=== PATIENT | male | born 1980 | race Caucasian/White ===

== ENCOUNTER → 2022-11-04 13:04 | Outpatient (BNVA) | payer OTHER, SELFPAY | PROVIDERS: PCP Internal Medicine; Visit Provider Orthopaedic Surgery ==

== ENCOUNTER 2023-06-17 11:18 | Outpatient (REF) | payer SELFPAY ==
[2023-06-17 14:13] LABS: MANUAL DIFF FLAG NO
[2023-06-17 14:57] LABS: Basophils Absolute Auto 0.1 X10*3/uL (0.0-0.2); Basophils Percent Auto 0.7 % (0-2); Eosinophils Absolute Auto 0.3 X10*3/uL (0.0-0.4); Eosinophils Percent Auto 4.6 % (0-4); Hematocrit 42.3 % (42.0-52.0); Hemoglobin 13.7 g/dl (14.0-18.0); Imm Gran Abs Auto 0.03 X10*3/uL (0.00-0.03); Imm Gran Pct Auto 0.4 % (0.0-0.4); Lymphocytes Absolute Auto 2.2 X10*3/uL (1.2-4.9); Lymphocytes Percent Auto 30.8 % (20-40); Mean Corpuscular HGB Conc 32.4 g/dl (31.0-36.0); Mean Corpuscular Hemoglobin 28.5 pg (27.0-33.0); Mean Corpuscular Volume 87.9 fL (80.0-98.0); Mean Platelet Volume 10.5 fL (9.4-12.4); Monocytes Absolute Auto 0.4 X10*3/uL (0.1-1.2); Monocytes Percent Auto 5.6 % (2-11); Neutrophils Percent Auto 57.9 % (45-73); Platelet Count 200 X10*3/uL (160-400); Red Blood Count 4.81 X10*6/uL (4.60-5.80); Red Cell Distribution Width 13.6 % (11.0-16.0)
[2023-06-17 15:09] LABS: Alanine Aminotransferase 34 U/L (0-40); Albumin Level 4.4 g/dL (3.5-5.0); Alkaline Phosphatase 68 U/L (39-117); Anion Gap 9 (12-20); Aspartate Amino Transferase 20 U/L (5-37); Bilirubin Total 0.8 mg/dL (0.0-1.0); Blood Urea Nitrogen 15 mg/dL (9-16); Calcium 9.6 mg/dL (8.4-10.2); Carbon Dioxide 28 mmol/L (22-29); Chloride 107 mmol/L (96-108); Estimated Glomerular Filt Rate > 60; Glucose Random 100 mg/dL (60-115); Potassium 4.2 mmol/L (3.3-5.1); Sodium 140 mmol/L (135-145); Total Protein 7.6 g/dL (6.5-8.0)
== END 2023-06-17 11:19 | disposition home or self-care (01) ==
LOC: HO.CHCLDS 11:18
PROVIDERS: Visit Provider Internal Medicine
DX: E11.621 Type 2 diabetes mellitus with foot ulcer (principal); L97.509 Non-pressure chronic ulcer of other part of unspecified foot with unspecified severity
CPT/HCPCS: 36415; 80053; 85025

== ENCOUNTER 2023-07-01 10:01 | Outpatient (REF) | payer MEDICAID, SELFPAY ==
--- NOTE | 2023-07-01 10:04 | EMG_ITS ---
Bilateral median and ulnar motor and sensory studies were performed. Bilateral radial and sensory studies were performed and paraspinal muscles were tested with a needle. IMPRESSION: 1. [id number] bilateral median neuropathy across carpal tunnel. 2. 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 MD LUIS E Mae/SHEYLA / [phone]
== END 2023-07-01 10:02 | disposition home or self-care (01) ==
LOC: HO.NEURO 10:01
PROVIDERS: PCP Internal Medicine; Visit Provider Internal Medicine
DX: G56.03 Carpal tunnel syndrome, bilateral upper limbs (principal)
CPT/HCPCS: 95886; 95911

== ENCOUNTER 2023-12-06 10:14 | Outpatient (REF) | payer MEDICAID, SELFPAY ==
[2023-12-06 14:58] LABS: Anion Gap 13 (12-20); Blood Urea Nitrogen 15 mg/dL (9-16); Calcium 9.7 mg/dL (8.4-10.2); Carbon Dioxide 26 mmol/L (22-29); Chloride 105 mmol/L (96-108); Cholesterol 155 mg/dL (<200); Estimated Glomerular Filt Rate > 60; Glucose Random 102 mg/dL (60-115); HDL Cholesterol 36 mg/dL (>40); LDL Cholesterol Calculated 99 mg/dL (<100); Potassium 4.2 mmol/L (3.3-5.1); Sodium 140 mmol/L (135-145); Triglycerides 103 mg/dL (<150)
== END 2023-12-06 10:15 | disposition home or self-care (01) ==
LOC: HO.CHCLDS 10:14
PROVIDERS: Visit Provider Internal Medicine
DX: E11.621 Type 2 diabetes mellitus with foot ulcer (principal); I10 Essential (primary) hypertension; L97.509 Non-pressure chronic ulcer of other part of unspecified foot with unspecified severity
CPT/HCPCS: 36415; 80048; 80061

== ENCOUNTER 2023-12-06 14:17 | Outpatient (REF) | payer MEDICAID, SELFPAY ==
[2023-12-06 14:53] LABS: Creatinine Urine 110.96 mg/dL; Microalbum/Creatinine Ratio Ur 8.1 ug/mg cr (<30)
== END 2023-12-06 14:18 | disposition home or self-care (01) ==
LOC: HO.LNP 14:17
PROVIDERS: Visit Provider Internal Medicine
DX: E11.621 Type 2 diabetes mellitus with foot ulcer (principal); L97.509 Non-pressure chronic ulcer of other part of unspecified foot with unspecified severity
CPT/HCPCS: 36415; 80048; 80061; 82043; 82570

== ENCOUNTER 2025-04-12 10:28 | Outpatient (REF) | payer OTHER, SELFPAY ==
--- NOTE | ~2025-04-12 | XR_ITS ---
EXAMINATION: XR FOOT, RIGHT CLINICAL INFORMATION: Right foot ulcer COMPARISON: None available. TECHNIQUE: AP, lateral, and oblique views of the right foot. FINDINGS: There is valgus deformity of the second digit. There is a chronic fracture through the proximal metaphysis of the fourth proximal phalanx with medial displacement. There is mild to moderate degenerative changes in the MTP and IP joints of the foot with varying degrees of joint space narrowing and marginal osteophytes. There is moderate degenerative change in the intermetatarsal, tarsometatarsal, and midfoot tarsal joints with sclerosis and osteophytes and degenerative cystic change. There are small calcaneal osteophytes. No periosteal new bone formation or bony destructive changes are identified. XR/XR foot RT min 3V IMPRESSION: Moderate degenerative changes in the midfoot and forefoot with valgus deformity of the second digit. Chronic fracture through the base of the fourth proximal phalanx with deformity. No definitive evidence of osteomyelitis. Consider MRI without and with IV contrast if there is high suspicion. Electronically signed by: Hiro Zhang MD 04/12/2025 10:51 AM [facility]
== END 2025-04-12 10:29 | disposition home or self-care (01) ==
LOC: HO.XRAY 10:28
PROVIDERS: PCP Internal Medicine; Visit Provider Internal Medicine
DX: L89.891 Pressure ulcer of other site, stage 1 (principal)
CPT/HCPCS: 73630

== ENCOUNTER → 2025-04-12 10:33 | Outpatient (BNV) | payer OTHER, SELFPAY | PROVIDERS: PCP Internal Medicine; Visit Provider Radiology Diagnostic Radiology | DX: M19.071 Primary osteoarthritis, right ankle and foot (principal); M20.5X1 Other deformities of toe(s) (acquired), right foot; S92.411D Displaced fracture of proximal phalanx of right great toe, subsequent encounter for fracture with routine healing | CPT/HCPCS: 73630 ==

== ENCOUNTER 2025-05-10 22:28 | Emergency (ER) | payer OTHER, SELFPAY ==
--- NOTE | ~2025-05-10 | XR_ITS ---
CLINICAL HISTORY: osteo?? 3 view right foot Comparison: CR/SR - XR FOOT 3 OR MORE VIEWS RIGHT - 04/12/25 10:39 EST Findings: Severe degenerative changes of the interphalangeal joints, metatarsophalangeal joints, and the midfoot. Remote fracture deformities of the 2nd and 4th proximal phalanx. No convincing cortical erosion. IMPRESSION: 1. No convincing radiographic evidence of osteomyelitis. If there is continued clinical concern, MRI is more sensitive. 2. Chronic findings as above. This document has been electronically signed by: Kori Bullard MD on 05/11/2025 01:11:05
[2025-05-10 22:47] VITALS: BP 144/94; PULSE 101; RESP 18; TEMP 37.3; O2SAT 98; BMI 33.4
[2025-05-10 23:23] LABS: MANUAL DIFF FLAG NO
[2025-05-10 23:27] LABS: Hematocrit 37.7 % (42.0-52.0); Hemoglobin 12.8 g/dl (14.0-18.0); Imm Gran Abs Auto 0.03 X10*3/uL (0.00-0.03); Imm Gran Pct Auto 0.3 % (0.0-0.4); Lymphocytes Absolute Auto 1.9 X10*3/uL (1.2-4.9); Mean Corpuscular HGB Conc 34.0 g/dl (31.0-36.0); Mean Corpuscular Hemoglobin 30.0 pg (27.0-33.0); Mean Corpuscular Volume 88.5 fL (80.0-98.0); NRBC Abs Auto 0.000 X10*3/uL (0.0-0.012); NRBC Pct Auto 0.0 /100WBC (0.0-0.2); Platelet Count 201 X10*3/uL (160-400); Red Blood Count 4.26 X10*6/uL (4.60-5.80); White Blood Count 9.5 X10*3/uL (4.8-10.8)
[2025-05-10 23:41] LABS: Alanine Aminotransferase 30 U/L (0-40); Albumin Level 4.4 g/dL (3.5-5.0); Alkaline Phosphatase 70 U/L (39-117); Anion Gap 13 (12-20); Aspartate Amino Transferase 19 U/L (5-37); Blood Urea Nitrogen 19 mg/dL (9-16); Calcium 8.9 mg/dL (8.4-10.2); Carbon Dioxide 28 mmol/L (22-29); Chloride 103 mmol/L (96-108); Creatinine Clr Calc Pharmacy 103.6; Estimated Glomerular Filt Rate 56; Potassium 4.0 mmol/L (3.3-5.1); Sodium 140 mmol/L (135-145); Total Protein 7.2 g/dL (6.5-8.0)
--- NOTE | 2025-05-11 00:25 | ED.GENADULT ---
HPI - General Adult General Chief complaint: Skin/Abscess/Foreign Body Stated complaint: Wound Time Seen by Provider: 05/11/25 00:20 Source: patient Limitations: no limitations History of Present Illness ED Provider: Marian Alonzo PA-C HPI narrative: 44-year-old male with history of diabetes we will subsequent neuropathy, with a known right plantar diabetic foot ulcer followed by wound care, now status post recent debridement, presents with a concern for active infection. Patient states over the past day and a half, he has developed new redness over the top of the foot that extends to the paz, that has painful, he is concerned for cellulitis. He is noting drainage from the ulcer site, however there was no foul smell, it is not pus. The patient denies fever. Related Data Previous Rx's ?Medication ?Instructions ?Recorded doxycycline hyclate 100 mg capsule 100 mg PO BID #19 caps 05/11/25 Allergies Allergy/AdvReac Type Severity Reaction Status Date / Time No Known Allergies Allergy Verified 05/10/25 22:49 Review of Systems Review of Systems: Yes all other systems are reviewed and are negative Constitutional: Constitutional: Denies fatigue and Denies fever(s) Cardiovascular: Cardiovascular: Denies chest pain and Denies dyspnea Respiratory: Respiratory: Denies dyspnea Gastrointestinal: Gastrointestinal: Denies abdominal pain Musculoskeletal: Musculoskeletal: Denies arthralgias and Denies joint swelling Integumentary/Breasts: Skin/Breast: Reports erythema, Denies skin swelling and Reports skin ulcer Endocrine: Endocrine: Denies fatigue PMFSH Past Medical History Attestation statement: The following information was validated with the patient. Medical History (Updated 05/11/25 @ 01:49 by NEGRA Castellano) Hx of diabetes mellitus Social History Social History (Updated 11/04/22 @ 13:34 by Brody Shannon) Alcohol intake: never Patient Tobacco Use Status: Never used Tobacco Advance Directives: No Advance Directives Information Provided: No Do you have a plan to hurt others: No Plan Current occupational status: employed Physical Exam ED Vital Signs: Vital Signs - 24 hr 05/10/25 22:47 05/11/25 01:58 05/11/25 02:08 Temperature 99.2 F 98.8 F 98.8 F Pulse Rate 101 H 92 92 Respiratory Rate 18 18 18 Blood Pressure 144/94 H 117/74 117/74 Pulse Oximetry 98 97 97 Oxygen Delivery Method Room Air Room Air Room Air BMI result Body Mass Index 33.4 Const Other: Alert well-appearing Orientation/consciousness: patient oriented x3 Resp Effort & Inspection: normal respiratory effort Cardio Other: Normal peripheral perfusion Skin Other: Warm dry no rash Neuro General: patient oriented x3, gait normal, no focal motor deficits and CN's II-XI intact bilaterally Extrem Other: Psych Other: Cooperative Medications Administered Discontinued Medications Generic Name Dose Route Start Last Admin Trade Name Phoebe PRN Reason Stop Dose Admin Doxycycline Monohydrate 100 mg 05/11/25 01:41 05/11/25 01:57 Doxycycline Monohydrate 100 Mg Capsule PO 05/11/25 01:42 100 mg ONCE ONE Administration Medical Decision Making Medical Decision Making [facility] Narrative: 44-year-old male with history of diabetes we will subsequent neuropathy, with a known right plantar diabetic foot ulcer followed by wound care, now status post recent debridement, presents with a concern for active infection. Patient states over the past day and a half, he has developed new redness over the top of the foot that extends to the paz, that has painful, he is concerned for cellulitis. He is noting drainage from the ulcer site, however there was no foul smell, it is not pus. The patient denies fever. Problem: Diabetes, known diabetic foot ulcer History: Per patient I have considered the following differential diagnoses: Active infection, cellulitis, purulent cellulitis, osteomyelitis, gangrene Plan: Screening labs obtained, adding on inflammatory markers and an x-ray. The patient is afebrile with stable vitals. Thus far he has no leukocytosis, the fluid noted on exam was serosanguineous. I have low suspicion for osteomyelitis. It does appear that he is developing cellulitis of right lower extremity. He may not require admission. I have independently reviewed the following tests: Labs: No leukocytosis, not anemic, no left shift, ESR 31, no electrolyte abnormality, CRP 3.97 X-ray right foot:Findings: Severe degenerative changes of the interphalangeal joints, metatarsophalangeal joints, and the midfoot. Remote fracture deformities of the 2nd and 4th proximal phalanx. No convincing cortical erosion. IMPRESSION: 1. No convincing radiographic evidence of osteomyelitis. If there is continued clinical concern, MRI is more sensitive. 2. Chronic findings as above. Differential Diagnosis Differential Diagnoses: The differential diagnosis associated with the presentation includes See [facility] Admission/Observation Consideration of admission/observation: Escalation of care including admission/observation considered Not applicable Lab Data [facility] Lab Attestation statement: I reviewed the patient's lab results. 05/10/25 23:17 05/10/25 23:17 Labs: Lab Results 05/10/25 Range/Units 23:17 WBC 9.5 (4.8-10.8) X10*3/uL RBC 4.26 L (4.60-5.80) X10*6/uL Hgb 12.8 L (14.0-18.0) g/dl Hct 37.7 L (42.0-52.0) % MCV 88.5 (80.0-98.0) fL MCH 30.0 (27.0-33.0) pg MCHC 34.0 (31.0-36.0) g/dl RDW 13.0 (11.0-16.0) % Plt Count 201 (160-400) X10*3/uL MPV 10.0 (9.4-12.4) fL Immature Gran % (Auto) 0.3 (0.0-0.4) % Neut % (Auto) 70.3 (45-73) % Lymph % (Auto) 20.1 (20-40) % [place] % (Auto) 6.6 (2-11) % Eos % (Auto) 2.3 (0-4) % Baso % (Auto) 0.4 (0-2) % Lymph # (Auto) 1.9 (1.2-4.9) X10*3/uL [place] # (Auto) 0.6 (0.1-1.2) X10*3/uL Eos # (Auto) 0.2 (0.0-0.4) X10*3/uL Baso # (Auto) 0.0 (0.0-0.2) X10*3/uL Abs Immat Gran (auto) 0.03 (0.00-0.03) X10*3/uL Absolute Neuts (auto) 6.7 (2.0-8.3) x10*3/uL Absolute Nucleated RBC 0.000 (0.0-0.012) X10*3/uL Nucleated RBC % (auto) 0.0 (0.0-0.2) /100WBC ESR 31 H (0-15) MM/HR Sodium 140 (135-145) mmol/L Potassium 4.0 (3.3-5.1) mmol/L Chloride 103 (96-108) mmol/L Carbon Dioxide 28 (22-29) mmol/L Anion Gap 13 (12-20) BUN 19 H (9-16) mg/dL Creatinine 1.38 (0.5-1.4) mg/dL Estim Creat Clear Calc 103.6 Estimated GFR 56 Random Glucose 152 H (60-115) mg/dL Calcium 8.9 D (8.4-10.2) mg/dL Total Bilirubin 0.8 (0.0-1.0) mg/dL AST 19 (5-37) U/L ALT 30 (0-40) U/L Alkaline Phosphatase 70 (39-117) U/L C-Reactive Protein 3.97 H (< or = 0.50) mg/dL Total Protein 7.2 (6.5-8.0) g/dL Albumin 4.4 (3.5-5.0) g/dL Radiology Impression Discussion of test interpretation with radiology: I have reviewed the radiologist's reading. Discharge Plan Discharge Clinical Impression: Cellulitis Qualifiers: Site of cellulitis: extremity Site of cellulitis of extremity: lower extremity Laterality: right Qualified Code(s): L03.115 - Cellulitis of right lower limb Patient Disposition: Home, Self-Care Instructions: Cellulitis (ED) Additional Instructions: You are being treated for cellulitis. You had no lab abnormalities, the x-ray of the foot did not reveal osteomyelitis. Take the doxycycline as directed. Watch for signs of progression of infection which would include worsening redness, swelling, warmth at the site of the ulceration, pus draining from the site, worsening redness tracking up the right lower extremity into the groin or fever. If you develop any of these symptoms, seek medical attention. Prescriptions: New doxycycline hyclate 100 mg capsule 100 mg PO BID Qty: 19 0RF Interventions: ED Discharge Assessment Last Done: 05/11/25 02:08 Discharge Date/Time: 05/11/25 02:08 Print Language: [place]
--- OUTSIDE RECORDS SUMMARY | 2025-05-11 00:40 | XMS_ITS | Encounter Summary ---
Author Organization [employer] Address [address] [place] [address] 7 [place] [address] Care Team Providers Care Lens Grinder Name Role Phone Korey Kelly MD Primary Care Prov ider Reason for Visit * Reason Comments Med Refill Encounter Details Date Type Department Care Team ([facility] st Contact Info) Description 11/11/2024 Refill [facility] CH[facility] MED & PEDS [address] [place], [place] [phone] Korey Kelly MD [address] [place] [address] Social History Tobacco Use Types Packs/Day Years Used Date Smoking Tobacco: Never Smokeless Tobacco: Never Alcohol Use Standard Drinks/Week Comments Never 0 (1 standard drink = 0.6 oz pur e alcohol) Depression Answer Date Recorded Patient Health Questionnaire-9 Score 0 05/12/2024 Patient Health Questionnaire-9 Score 0 05/12/2024 Last PHQ-9: Questionnaire Data Not on file 1 07/13/2023 Housing Stability Answer Date Recorded What is your housing situation today? I have john lovell 11/29/[address] you li ve. Do you have problems with any of the following? None of the above 11/29/2023 Food Insecurity Answer Date Recorded Within the past 12 months, y ou worried that your food would run out before you got money to buy more: Never True 11/29/2023 Within the past 12 months,th e food you bought just didn't last and you didn't have enough money to get more: Never True Transportation Answer Date Recorded In the past 12 months, has l ack of transportation kept you from medical appts, meetings, work or from getting things needed for daily living? No 11/29/2023 Utilities Answer Date Recorded In the past 12 months, has t he electric, gas, oil or water company threatened to shut off services in your home? No 11/29/2023 Depression Answer Date Recorded Patient Health Questionnaire-2 Score 0 05/12/2024 Internet Access Answer Date Recorded Internet Access Q1 Yes 02/07/2024 Internet Access Q2 Not on file 02/07/2024 Sex and Gender Information Value Date Recorded Sex Assigned at Male 04/06/2022 10:36 AM EDT Legal Sex Male 10:36 AM EDT Gender Identity Male 04/06/2022 10:36 AM EDT Sexual Orientation Straight 04/06/2022 10 :36 AM EDT documented as of this encounter Plan of Treatment Not on file documented as of this encounter Visit Diagnoses Not on filedocumented in this encounter Additional Health Concerns Assessment Noted Time PHQ-9 Depression Total Score: 0 05/12/20 24 9:37 AM EST documented as of this encounter Care Teams Lens Grinder Relationship Specialty Start Date End Date Korey Kelly MD [address] [place] [id number] PCP - General Internal Medicine 03/09/19 documented as of this encounter
--- OUTSIDE RECORDS SUMMARY | 2025-05-11 00:40 | XMS_ITS | Encounter Summary ---
Author Organization [facility] Address [address] [place] [address] Phone Care Team Providers Care Bottle Assembler Name Role Phone Unknown, Unknown Primary Care Provider Korey Leal MD Primary Care Prov ider Encounter Details Date Type Department Care Team (Late st Contact Info) Description 02/14/2019 Procedure Pass [facility], [address] [address] Social History Tobacco Use Types Packs/Day Years Used Date Smoking Tobacco: Never Smokeless Tobacco: Never Alcohol Use Standard Drinks/Week Comments Not Currently 0 (1 standard drink = 0.6 oz pur e alcohol) Sex and Gender Information Value Date Recorded Sex Assigned at Not on file Legal Sex Male 3:42 PM EDT Gender Identity Not on file Sexual Orientation Not on file documented as of this encounter Plan of Treatment Not on file documented as of this encounter Visit Diagnoses Not on filedocumented in this encounter Care Teams Bottle Assembler Relationship Specialty Start Date End Date Unknown, Unknown, MD PCP - General 02/12/19 03/08/19 Korey Kelly MD [address] [place] [address] PCP - General 03/09/19 documented as of this encounter Additional Source Comments The information contained in this document represents components of the legal health record. It is not the complete legal health record.[facility]
--- OUTSIDE RECORDS SUMMARY | 2025-05-11 00:40 | XMS_ITS | Encounter Summary ---
Author Organization [employer] Address [address] [place] [address] 7 [place] [address] Care Team Providers Care Senior Web Services Developer Name Role Phone Korey Kelly MD Primary Care Prov ider Reason for Visit * Reason Comments Med Refill Encounter Details Date Type Department Care Team ([facility] st Contact Info) Description 01/04/2025 Refill [facility] CHC MED & PEDS [address] [place], [place] [phone] Korey Kelly MD [address] [place] [address] Social History Tobacco Use Types Packs/Day Years [...] documented as of this encounter Care Teams Senior Web Services Developer Relationship Specialty Start Date End Date Korey Kelly MD [address] [place] [address] PCP - General Internal Medicine 03/09/19 documented as of this encounter
--- OUTSIDE RECORDS SUMMARY | 2025-05-11 00:40 | XMS_ITS | Encounter Summary ---
Author Organization [facility] Address [address] [place] [phone] Phone Care Team Providers Care Lozenge Dough Mixer Name Role Phone Unknown, Unknown Primary Care Provider Korey Leal MD Primary Care Prov ider Encounter Details Date Type Department Care Team (Late st Contact Info) Description 02/28/2019 Ancillary Orders Virtual Department [address] [place] [address] Purnima Garcia MD [address] [place] [address] Type 2 diabetes mellitus without complication, unspecified whether longwall headgate operator insulin use Social History Tobacco Use Types Packs/Day Years [...] documented as of this encounter Visit Diagnoses Diagnosis Type 2 diabetes mellitus without complication, unspecified whether long-term insulin use documented in this encounter Care Teams Lozenge Dough Mixer Relationship Specialty Start Date End Date Unknown, Unknown, PCP - General 02/12/19 03/08/19 Korey Kelly MD [address] [place] [address] PCP - General 03/09/19 documented as of this encounter Additional Source Comments The information contained in this document represents components of the legal health record. It is not the complete legal health record.[facility]
--- OUTSIDE RECORDS SUMMARY | 2025-05-11 00:40 | XMS_ITS | Encounter Summary ---
Author Organization [facility] Address [address] [place] [address] Phone Care Team Providers Care Hay Stacker Name Role Phone Korey Kelly MD Primary Care Prov ider Encounter Details Date Type Department Care Team (Latest Contact Info) Description 03/20/2019 Transcribe Orders [address] [place] [address] Asad Angel MD [address] 2nd [place] [address] [email or web address] Diabetic foot ulcer associated with other specified diabetes mellitus, unspecified laterality, unspecified part of foot, unspecified ulcer stage (Primary Dx) Social History Tobacco Use Types Packs/Day Years Used Date Smoking Tobacco: Never Smokeless Tobacco: Never Alcohol Use Standard Drinks/Week Comments Yes 0 (1 standard drink = 0.6 oz pur e alcohol) very rare Sex and Gender Information Value Date Recorded Sex Assigned at Not on file Legal Sex Male 3:42 PM EDT Gender Identity Not on file Sexual Orientation Not on file documented as of this encounter Plan of Treatment Not on file documented as of this encounter Results * (ABNORMAL) Sedimentation rate (ESR) (03/20/2019 2:00 PM EDT) ESR 30(H) 0 - 15 mm/h [facility] Blood 03/20/2019 2:00 PM EDT 03/20/2019 3:29 PM EDT us Asad Angel MD LAB BLOOD BKR ORDERABLE S Final Result Performing Organization Address City/[facility]/ZIP Co de Phone Number [address] [address] * (ABNORMAL) C-Reactive Protein (03/20/2019 2:00 PM EDT) C REACTIVE PROTEIN 6.3(H) 0.0 - 4.0 mg/L [facility] Blood 03/20/2019 2:00 PM EDT 03/20/2019 3:29 PM EDT us Asad Angel MD LAB BLOOD BKR ORDERABLE S Final Result Performing Organization Address [facility] Co de Phone Number [address] [address] * (ABNORMAL) CBC and differential (03/20/2019 2:00 PM EDT) WBC 6.10 3.40 - 11.20 K/uL [facility] RBC 4.36(L) 4.50 - 5.50 M/uL [facility] HGB 12.5(L) 13.0 - 17.0 g/dL [facility] HCT 37.7(L) 40.0 - 51.0 % [facility] PLT 234 130 - 400 K/uL [facility] MCV 86.5 79.0 - 98.0 [facility] MCH 28.7 27.0 - 34.8 pg [facility] MCHC 33.2 31.5 - 36.0 g/dL [facility] RDW 13.8 10.8 - 14.6 % [facility] MPV 10.6 9.4 - 12.4 [facility] NRBC 0.00 0.00 /100 WBCs [facility] ABSOLUTE NRBC 0.00 0.00 K/uL [facility] DIFF METHOD Auto [facility] NEUTS 61.9 45.30 - 77.70 % [facility] LYMPHS 25.6 12.30 - 39.70 % [facility] MONOS 6.9 4.10 - 12.80 % [facility] EOS 4.3 0 - 7.2 % [facility] BASOS 0.8 0 - 2.80 % [facility] Granulocytes, immature (%) 0.5 0.0 - 0.9 % [facility] ABSOLUTE NEUTS 3.78 1.40 - 7.70 K/uL [facility] ABSOLUTE LYMPHS 1.56 0.60 - 3.20 K/uL [facility] ABSOLUTE MONOS 0.42 0.11 - 0.59 K/uL [facility] ABSOLUTE EOS 0.26 0.01 - 0.50 K/uL [facility] ABSOLUTE BASOS 0.05 0.00 - 0.08 K/uL [facility] Granulocytes, immature 0.03 0.00 - 0.05 K/uL [facility] Blood 03/20/2019 2:00 PM EDT 03/20/2019 3:29 PM EDT us Asad Angel MD LAB BLOOD BKR ORDERABLE S Final Result [facility] [address] [place], [place] [phone] * (ABNORMAL) Comprehensive metabolic panel (03/20/2019 2:00 PM EDT) SODIUM 140 133 - 146 mmol/L [facility] POTASSIUM 4.2 3.3 - 5.1 mmol/L [facility] CHLORIDE 103 96 - 108 mmol/L [facility] CO2 25 21 - 35 mmol/L [facility] BUN 19 6 - 19 mg/dL [facility] CREATININE 0.80 0.5 - 1.5 mg/dL [facility] GLUCOSE 111(H) 70 - 99 mg/dL [facility] ALBUMIN 4.3 3.9 - 4.8 g/dL [facility] TOTAL PROTEIN 7.2 6.5 - 8.0 g/dL [facility] CALCIUM 9.7 8.4 - 10.3 mg/dL [facility] ALKALINE PHOSPHATASE 66 39 - 117 U/L [facility] TOTAL BILIRUBIN 0.5 0.0 - 1.2 mg/dL [facility] AST 16 0 - 37 U/L [facility] ALT 26 0 - 40 U/L [facility] GLOBULIN 2.9 1 - 4.8 g/dL [facility] EGFR 113 >59 mL/min/1.7 3m2 [facility] Comment:If patient is black, multiply result by 1.159. Estimated glomerular filtration rate calculated using the CKD-EPI equation. ANION GAP 16 10 - 20 mmol/L [facility] Blood 03/20/2019 2:00 PM EDT 03/20/2019 3:29 PM EDT us Asad Angel MD LAB BLOOD BKR ORDERABLE S Final Result [facility] [address] [place] [address] documented in this encounter Visit Diagnoses Diagnosis Diabetic foot ulcer associated with other specified diabetes mellitus, unspecified laterality, unspecified part of foot, unspecified ulcer stage- Primary documented in this encounter Care Teams Hay Stacker Relationship Specialty Start Date End Date Korey Kelly MD [address] [place] [address] PCP - General 03/09/19 documented as of this encounter Additional Source Comments The information contained in this document represents components of the legal health record. It is not the complete legal health record.[facility]
--- OUTSIDE RECORDS SUMMARY | 2025-05-11 00:40 | XMS_ITS | Encounter Summary ---
Author Organization [employer] Address [address] [facility] [address] [place] [address] Care Team Providers Care Headliner Installer Name Role Phone Korey Kelly MD Primary Care Prov ider Encounter Details Date Type Department Care Team ([facility] st Contact Info) Description 05/18/2022 Orders Only [facility] MEDICINE [address] [place], [place] [phone] Korey Kelly MD [address] [place] [address] Social History Tobacco Use Types Packs/Day Years Used Date Smoking Tobacco: Never Assessed Sex and Gender Information Value Date Recorded Sex Assigned at Male 04/06/2022 10:36 AM EDT Legal Sex Male 10:36 AM EDT Gender Identity Male 04/06/2022 10:36 AM EDT Sexual Orientation Straight 04/06/2022 10 :36 AM EDT COVID-19 Exposure Response Date Recorded In the last 10 days, have yo u been in contact with someone who was confirmed or suspected to have Coronavirus/COVID-19? No / Unsure 05/18/2022 9:56 AM EST documented as of this encounter Plan of Treatment Not on file documented as of this encounter Visit Diagnoses Not on filedocumented in this encounter Care Teams Headliner Installer Relationship Specialty Start Date End Date Korey Kelly MD [address] [place] [address] PCP - General Internal Medicine 03/09/19 documented as of this encounter
--- OUTSIDE RECORDS SUMMARY | 2025-05-11 00:40 | XMS_ITS | Encounter Summary ---
Author Organization [facility] Address [address] [place] [address] Phone Care Team Providers Care Pediatric Associate Name Role Phone Korey Kelly MD Primary Care Prov ider Encounter Details Date Type Department Care Team (Late st Contact Info) Description 03/09/2019 Ancillary Orders Virtual Department [address] [place] [address] Purnima Garcia MD [address] [place] [address] Type 2 diabetes mellitus without complication, unspecified whether manager long term care insulin use Social History Tobacco Use Types [...] documented as of this encounter Results * US Ankle/Brachial Indices (03/09/2019 2:57 PM EDT) Anatomical Region Laterality Modality Ankle Left, Ankle Right Ultrasou nd 03/09/2019 3:51 PM EDT Addenda Addendum by Ihsan Gutiérrez MD on 03/10/2019 2:11 PM EDT Please disregard the report below, the following report supersedes the one previously dictated. Clinical history: Foot ulcer, type 2 diabetes mellitus. Findings: The study is limited due to a PICC in the upper extremity and bandage material around the affected foot at the ulcer site. The following pressures were obtained in millimeters of mercury: Left brachial 134, left posterior tibial artery 167 Right PT 161, right DP 143. Arterial indices are 1.2 and 1.07 on the right for the PT and DP respectively. The ANNA on the left is 1.25 for of the posterior tibial artery. Impression: Study limited as described with no evidence of significant arterial insufficiency on either side. Impressions 03/10/2019 11:26 AM EDT Impression: Findings consistent with severe arterial insufficiency bilaterally, left greater than right, commencing in the common femoral artery suggesting significant inflow disease and involving the entire arterial system bilaterally. Narrative 03/10/2019 11:26 AM EDT HISTORY: Foot ulcer. Bilateral ABIs and Doppler waveforms were obtained. Blood pressures (in mm Hg) and arterial indices are as follows: Right-side: Brachial 0, PT 161/1.20, DP 143/1.07 Left side: Brachial 134, PT 167/1.25. There is evidence of atherosclerotic plaque throughout the arterial system bilaterally. The following flow velocities were obtained in centimeters per second: Right side: MULTIGRAPH OPERATOR 101, proximal SFA 122, mid SFA 98, distal SFA 157 proximal popliteal artery 41, mid popliteal artery 34 and distal popliteal artery 46. Anterior tibial artery 15 proximal and 50 in its midportion, it could not be sampled distally. Peroneal artery 30 proximally, 37 in its midportion, no sampling could be performed distally and posterior tibial artery 26, 23 and 23 from proximal to distal respectively. On the left side, the following velocities were obtained: MULTIGRAPH OPERATOR 132, proximal mid and distal SFA 66, 57 and 29,respectively, proximal mid and distal popliteal artery 28, 30 and 36, anterior tibial artery in its proximal and midportion 28, it could not be sampled distally, peroneal artery 38, 21 and 64 and posterior tibial artery 15, 22 and 25. Grayscale imaging supplemented by Doppler waveforms demonstrate decreased flow throughout the entire right lower extremity arterial system commencing in the common femoral artery which has monophasic waveforms suggesting significant iliac inflow disease. Waveforms remain bi- and monophasic throughout the femoral-popliteal system and become monophasic in the below the knee outflow vessels with substantial amplitude loss. On the left side, there is likewise abnormality of the waveforms with diffuse partially severe atherosclerotic plaque formation and biphasic and monophasic waveforms are noted throughout the femoral-popliteal system, essentially monophasic commencing at the level of the mid SFA and continuing into the below the knee outflow arteries. Compared to the contralateral side, the left lower extremity is more severely affected. Procedure Note Ihsan Gutiérrez MD - 03/10/2019 HISTORY: Foot ulcer. Bilateral ABIs and Doppler waveforms were obtained. Blood pressures (in mm Hg) and arterial indices are as follows: Right-side: Brachial 0, PT 161/1.20, DP 143/1.07 Left side: Brachial 134, PT 167/1.25. There is evidence of atherosclerotic plaque throughout the arterial systembilaterally. The following flow velocities were obtained in centimetersper second: Right side: MULTIGRAPH OPERATOR 101, proximal SFA 122, mid SFA 98, distal SFA 157 proximalpopliteal artery 41, mid popliteal artery 34 and distal popliteal [id number]. Anterior tibial artery 15 proximal and 50 in its midportion, it couldnot be sampled distally. Peroneal artery 30 proximally, 37 in itsmidportion, no sampling could be performed distally and posterior tibialartery 26, 23 and 23 from proximal to distal respectively. On the left side, the following velocities were obtained: MULTIGRAPH OPERATOR 132,proximal mid and distal SFA 66, 57 and 29,respectively, proximal mid anddistal popliteal artery 28, 30 and 36, anterior tibial artery in itsproximal and midportion 28, it could not be sampled distally, peronealartery 38, 21 and 64 and posterior tibial artery 15, 22 and 25. Grayscale imaging supplemented by Doppler waveforms demonstrate decreasedflow throughout the entire right lower extremity arterial systemcommencing in the common femoral artery which has monophasic waveformssuggesting significant iliac inflow disease. Waveforms remain bi- andmonophasic throughout the femoral-popliteal system and become monophasicin the below the knee outflow vessels with substantial amplitude loss. On the left side, there is likewise abnormality of the waveforms withdiffuse partially severe atherosclerotic plaque formation and biphasic andmonophasic waveforms are noted throughout the femoral-popliteal system,essentially monophasic commencing at the level of the mid SFA andcontinuing into the below the knee outflow arteries. Compared to thecontralateral side, the left lower extremity is more severely affected. IMPRESSION: Impression: Findings consistent with severe arterial insufficiencybilaterally, left greater than right, commencing in the common femoralartery suggesting significant inflow disease and involving the entirearterial system bilaterally. Purnima Garcia MD [facility] VASCULAR Edited Result - Final documented in this encounter Visit Diagnoses Diagnosis Type 2 diabetes mellitus without complication, unspecified whether [facility] insulin use Type 2 diabetes mellitus without complication, unspecified whether [facility] insulin use documented in this encounter Care Teams Pediatric Associate Relationship Specialty Start Date End Date Korey Kelly MD [address] [place] [address] PCP - General 03/09/19 documented as of this encounter Additional Source Comments The information contained in this document represents components of the legal health record. It is not the complete legal health record.[facility]
--- OUTSIDE RECORDS SUMMARY | 2025-05-11 00:40 | XMS_ITS | Encounter Summary ---
Author Organization [facility] Address [address] [place] [address] Phone Care Team Providers Care Piece Work Checker Name Role Phone Unknown, Unknown Primary Care Provider Korey Leal MD Primary Care Prov ider Encounter Details Date Type Department Care Team (Latest Contact Info) Description 03/06/2019 Transcribe Orders [address] [place] [address] Asad Angel MD [address], 2nd [place] [address] [email or web address] Diabetic neurogenic arthropathy (Primary Dx); Type 2 diabetes mellitus with diabetic polyneuropathy, without long-term current use of insulin; Bacteremia due to methicillin susceptible Staphylococcus aureus (MSSA); Diabetic foot infection Social History Tobacco Use Types Packs/Day Years [...] documented as of this encounter Results * Microalbumin/creatinine ratio, random urine (03/06/2019 9:30 AM EDT) URINE MICROALBUMIN <1.2 0 - 2.3 mg/dL [facility] URINE CREATININE 93 mg/dL [employer] [facility] MICROALB/CRE RATIO NOT CALCULATED 0 - 20 mg/g Cre [facility] Comment:due to Microalbumin <1.2 Urine (Urine) 03/06/2019 9:3 0 AM EDT 03/07/2019 11:14 AM EDT us Asad Angel MD LAB URINE ORDERABLES Fi nal Result Performing Organization Address [facility]/ZIP Co de Phone Number [address] [address] * (ABNORMAL) C-Reactive Protein (03/06/2019 9:30 AM EDT) C REACTIVE PROTEIN 4.9(H) 0.0 - 4.0 mg/L [facility] Blood 03/06/2019 9:30 AM EDT 03/07/2019 11:15 AM EDT us Asad Angel MD LAB BLOOD BKR ORDERABLE S Final Result Performing Organization Address [facility] de Phone Number [address] [address] * (ABNORMAL) CBC and differential (03/06/2019 9:30 AM EDT) WBC 5.89 3.40 - 11.20 K/uL [facility] RBC 4.35(L) 4.50 - 5.50 M/uL [facility] HGB 12.5(L) 13.0 - 17.0 g/dL [facility] HCT 38.0(L) 40.0 - 51.0 % [facility] PLT 276 130 - 400 K/uL [facility] MCV 87.4 79.0 - 98.[address] [facility] MCH 28.7 27.0 - 34.[address] [facility] MCHC 32.9 31.5 - 36.0 g/dL [facility] RDW 13.0 10.8 - 14.6 % [facility] MPV 11.0 9.4 - 12.[address] [facility] NRBC 0.00 0.00 /[address] [facility] ABSOLUTE NRBC 0.00 0.00 K/uL [facility] DIFF METHOD Auto [facility] NEUTS 57.6 45.30 - 77.70 % [facility] LYMPHS 30.9 12.30 - 39.70 % [facility] MONOS 5.1 4.10 - 12.80 % [facility] EOS 4.9 0 - 7.2 % [facility] BASOS 1.2 0 - 2.80 % [facility] Granulocytes, immature (%) 0.3 0.0 - 0.9 % [facility] ABSOLUTE NEUTS 3.39 1.40 - 7.70 K/uL [facility] ABSOLUTE LYMPHS 1.82 0.60 - 3.20 K/uL [facility] ABSOLUTE MONOS 0.30 0.11 - 0.59 K/uL [facility] ABSOLUTE EOS 0.29 0.01 - 0.50 K/uL [facility] ABSOLUTE BASOS 0.07 0.00 - 0.08 K/uL [facility] Granulocytes, immature 0.02 0.00 - 0.05 K/uL [facility] Blood 03/06/2019 9:30 AM EDT 03/07/2019 11:15 AM EDT us Asad Angel MD LAB BLOOD BKR ORDERABLE S Final Result Performing Organization Address City/State/[facility] Co de Phone Number [address] [phone] * LFTs (hepatic panel) (03/06/2019 9:30 AM EDT) ALKALINE PHOSPHATASE 57 39 - 117 U/L [facility] TOTAL BILIRUBIN 0.5 0.0 - 1.2 mg/dL [facility] DIRECT BILIRUBIN <0.2 0 - 0.3 mg/dL [facility] Bilirubin (Indirect) NOT CALCULATED 0 - 1.5 mg/dL [facility] AST 14 0 - 37 U/L [facility] ALT 24 0 - 40 U/L [facility] TOTAL PROTEIN 7.2 6.5 - 8.0 g/dL [facility] ALBUMIN 4.0 3.9 - 4.8 g/dL [facility] GLOBULIN 3.2 1 - 4.8 g/dL [facility] A/G Ratio 1.25 1.00 - 4.[address] [facility] Blood 03/06/2019 9:30 AM EDT 03/07/2019 11:15 AM EDT us Asad Angel MD LAB BLOOD BKR ORDERABLE S Final Result [address] [address] * (ABNORMAL) Lipid panel (03/06/2019 9:30 AM EDT) HDL 27 mg/dL [facility] Comment: Interpretation <40 mg/dL: Low HDL cholesterol (major risk factor for CHD) Greater than or equal to 60 mg/dL: High HDL cholesterol ( negative risk factor for CHD) HDL - cholesterol is affected by a number of factors, e.g. smoking, excerise, hormones, sex and age. CHOLESTEROL 192 0 - 240 mg/dL [facility] TRIGLYCERIDES 132 30 - 160 mg/dL [facility] LDL 139(H) 50 - 129 mg/dL [facility] Comment: LDL levels in terms of risk for coronary heart disease: <100 mg/dL: Optimal 100-129 mg/dL: Near or above optimal 130-159 mg/dL: Borderline high 160-189 mg/dL: High >190 mg/dL: Very High CARDIAC RISK RATIO 7.1(H) 3.4 - 5.0 C [facility] Blood 03/06/2019 9:30 AM EDT 03/07/2019 11:15 AM EDT us Asad Angel MD LAB BLOOD BKR ORDERABLE S Final Result Performing Organization Address City/[facility]/ZIP Co de Phone Number [facility] [address] [place] [address] * (ABNORMAL) Basic metabolic panel (03/06/2019 9:30 AM EDT) SODIUM 142 133 - 146 mmol/L [facility] CHLORIDE 104 96 - 108 mmol/L [facility] POTASSIUM 4.3 3.3 - 5.1 mmol/L [facility] CO2 26 21 - 35 mmol/L [facility] BUN 15 6 - 19 mg/dL [facility] CREATININE 0.70 0.5 - 1.5 mg/dL [facility] GLUCOSE 122(H) 70 - 99 mg/dL [facility] CALCIUM 9.4 8.4 - 10.3 mg/dL [facility] EGFR 120 >59 mL/min/1.[address] [facility] Comment:If patient is black, multiply result by 1.159. Estimated glomerular filtration rate calculated using the CKD-EPI equation. ANION GAP 16 10 - 20 mmol/L [facility] Blood 03/06/2019 9:30 AM EDT 03/07/2019 11:15 AM EDT us Asad Angel MD LAB BLOOD BKR ORDERABLE S Final Result [facility] [address] [place] [address] documented in this encounter Visit Diagnoses Diagnosis Diabetic neurogenic arthropathy- Primary Type II or unspecified type diabetes mellitus with neurological manifestations, not stated as uncontrolled Type 2 diabetes mellitus with diabetic polyneuropathy, without long-term current use of insulin Bacteremia due to methicillin susceptible Staphylococcus aureus (MSSA) Diabetic foot infection documented in this encounter Care Teams Piece Work Checker Relationship Specialty Start Date End Date Unknown, Unknown, MD PCP - General 02/12/19 03/08/19 Korey Kelly MD [address] [place] [id number] PCP - General 03/09/19 documented as of this encounter Additional Source Comments The information contained in this document represents components of the legal health record. It is not the complete legal health record.[facility]
--- OUTSIDE RECORDS SUMMARY | 2025-05-11 00:40 | XMS_ITS | Encounter Summary ---
Author Organization [facility] [facility] Address [address] [place] [address] 7 [place] [address] Care Team Providers Care In Home Caregiver Name Role Phone Korey Kelly MD Primary Care Prov ider Reason for Visit * Reason Comments Med Refill Encounter Details Date Type Department Care Team ([facility] st Contact Info) Description 04/16/2024 Refill [facility] MED [facility] PEDS [address] [place], [place] [phone] Korey Kelly MD [address] [place] [address] Primary hypertension Social History Tobacco Use Types Packs/Day Years Used Date Smoking Tobacco: Never Smokeless Tobacco: Never Alcohol Use Standard Drinks/Week Comments Never 0 (1 standard drink = 0.6 oz pur e alcohol) Depression Answer Date Recorded Patient Health Questionnaire-9 Score 0 08/28/2022 Housing Stability Answer Date Recorded What is [...] Date Recorded Patient Health Questionnaire-2 Score 0 08/28/2022 Internet Access Answer Date Recorded Internet Access [...] as of this encounter Visit Diagnoses Diagnosis Primary hypertension Unspecified essential hypertension documented in this encounter Additional Health Concerns Assessment Noted Time PHQ-9 Depression Total Score: 0 08/29/19 23 10:52 AM EDT documented as of this encounter Care Teams In Home Caregiver Relationship Specialty Start Date End Date Korey Kelly MD [address] [place] [id number] PCP - General Internal Medicine 03/09/19 documented as of this encounter
--- OUTSIDE RECORDS SUMMARY | 2025-05-11 00:40 | XMS_ITS | Encounter Summary ---
Author Organization [facility] Address [address] [place] [address] 7 [place] [address] Care Team Providers Care Therapeutic Strategy Lead Name Role Phone Korey Kelly MD Primary Care Prov ider Encounter Details Date Type Department Care Team ([facility] Contact Info) Description 04/24/2022 Abstract [facility] CH[facility] MED & PEDS [address] [place], [place] [phone] Provider, MD Arlene Social History Tobacco Use Types Packs/Day Years [...] on file documented as of this encounter Procedures Procedure Name Priority Date/Time Associated Diagnosis Comments HEMOGLOBIN A1C Routine 12/16/2021 documented in this encounter Results * (ABNORMAL) Hemoglobin A1c (12/16/2021) Hemoglobin A1C 6.5(A) 4.0 - 6.0 % Blood Venous blood specimen / Unknown us Historical Provider LAB BLOOD ORDERABLES Laure l Result documented in this encounter Visit Diagnoses Not on filedocumented in this encounter Care Teams Therapeutic Strategy Lead Relationship Specialty Start Date End Date Korey Kelly MD [address] [place] [id number] PCP - General Internal Medicine 03/09/19 documented as of this encounter
--- OUTSIDE RECORDS SUMMARY | 2025-05-11 00:40 | XMS_ITS | Encounter Summary ---
Author Organization [facility] Address [address] [place] [phone] Phone Care Team Providers Care Sales Merchandiser Name Role Phone Unknown, Unknown Primary Care Provider Korey Leal MD Primary Care Prov ider Encounter Details Date Type Department Care Team (Late st Contact Info) Description 02/17/2019 Procedure Pass [facility] [address] [place] [address] Social History Tobacco Use Types Packs/Day Years [...] on filedocumented in this encounter Care Teams Sales Merchandiser Relationship Specialty Start Date End Date Unknown, Unknown, PCP - General 02/12/19 03/08/19 Korey Kelly MD [address] [place] [id number] PCP - General 03/09/19 documented as of this encounter Additional Source Comments The information contained in this document represents components of the legal health record. It is not the complete legal health record.[facility]
--- OUTSIDE RECORDS SUMMARY | 2025-05-11 00:40 | XMS_ITS | Encounter Summary ---
Author Organization [facility] Address [address] [place] [phone] Phone Care Team Providers Care Scientific Systems Analyst Name Role Phone Unknown, Unknown Primary Care Provider Korey Leal MD Primary Care Prov ider Encounter Details Date Type Department Care Team (Late st Contact Info) Description 02/13/2019 Procedure Pass [place] Admitting Dept - Virtual Department [address] [place] [address] Social History Tobacco Use Types Packs/Day Years [...] on filedocumented in this encounter Care Teams Scientific Systems Analyst Relationship Specialty Start Date End Date Unknown, Unknown, PCP - General 02/12/19 03/08/19 Korey Kelly MD [address] [place] [address] PCP - General 03/09/19 documented as of this encounter Additional Source Comments The information contained in this document represents components of the legal health record. It is not the complete legal health record.[facility]
--- OUTSIDE RECORDS SUMMARY | 2025-05-11 00:40 | XMS_ITS | Clinical Summary ---
Author Organization [employer] Address [address] [place] [address] [address] [place] [address] Care Team Providers Care Certified Personal Chef Name Role Phone Korey Kelly MD Primary Care Prov ider Allergies Active Allergy Reactions Criticality Noted Date Comments Lisinopril Cough 03/03/2022 Medications clotrimazole (Lotrimin) 1 % cream Apply topically every 12 (twelve) hours. 9 Active glucose blood (FREESTYLE LITE) test strip Inject under the skin every 8 (eight) hours. 9 Active chlorthalidone (Hygroton) 25 MG tabletIndications: Primary hypertension Take 1 tablet (25 mg) by mouth Once per day. 90 tablet 3 5 10/19/19 26 Active losartan (Cozaar) 100 MG tabletIndications: Mixed hyperlipidemia Take 1 tablet (100 mg) by mouth in the morning. 90 tablet 3 5 10/19/19 26 Active atorvastatin (Lipitor) 40 MG tabletIndications: Mixed hyperlipidemia Take 1 tablet (40 mg) by mouth in the morning. 90 tablet 3 5 10/19/19 26 Active Dulaglutide (Trulicity) 3 MG/0.5ML solution auto-injectorIndic ations:Mixed hyperlipidemia Inject 3 mg under the skin 1 (one) time per week. 2 mL 6 5 Active Active Problems Problem Noted Date Diagnosed Date Bilateral carpal tunnel syndrome 06/19/2023 Assessment & Plan (09/22/2023 1:20 PM EDT): Emg found with mild to moderate cts findings, avoid repetitive movement, continue tight glucose control, wear wrist splint at night, he refers pain has not worsened, he will call bck if worsening Assessment & Plan (06/19/2023 12:38 PM EST): Will order EMg, positive phalen test Type 2 diabetes mellitus wit h foot ulcer, without long-term current use of insulin 08/28/2022 Assessment & Plan (10/18/2024 9:00 AM EDT): Uncontrolled, he has been over 6 weeks without trulicity due to insurance issues, he refers got a call yesterday that was finally approved, instructed to start therapy as soon as possible, new labs ordered for next visit Assessment & Plan (05/12/2024 9:54 AM EST): No episode of hypoglycemia, will increase trulicity to 3mg, follow up in 3 months Assessment & Plan (01/11/2024 11:14 AM EDT): Controlled, will increase trulicity to 1.5, stop metformin, causing gi side effects Assessment & Plan (12/06/2023 12:37 PM EDT): -A1c at goal of <7%. POCT A1c 6.2% today which is increased from previous -continue: metformin 500 every day and trulicity 0.75 weekly -microalbumin: ordered today/ due next year -foot exam: completed today. Neuropathy present. Podiatry referral placed for follow-up on what patient is calling callus underneath feet -dental: encouraged to set up an appointment -eye exam: encouraged to to return to eye doc for dilation test as recommended -daily foot exams encouraged -patient declined medication increases today stating he will work more on dietary changes -low carb, low sugar diet and daily physical activity advised -follow-up 3 months Assessment & Plan (09/22/2023 1:19 PM EDT): Refers lowest 102 highest 170's after eating candies, usually on the 12-'s-130's range, no changes will be made. Pending eye exam Assessment & Plan (06/19/2023 12:36 PM EST): At target <5.7%, continue metformin and trulicity, continue low carb/no sugar diet Foot exam done, will refer to podiatry Eye exam done Assessment & Plan (09/22/2022 12:33 PM EDT): Patient has not picked up the trulicity,, but he has cut down carbohydrates and despite he had several BG spike on hislog the average has been around 140, he will order picker medication today, will follow up in 1 month Assessment & Plan (08/28/2022 1:23 PM EDT): A1c not at target, will add trulicity, will follow up in 1 month, low carb/no sugar diet reinforced, will also refer to podiatry for callus evaluation Eye exam due in september Trigger middle finger of left hand 08/28/2022 Assessment & Plan (06/19/2023 12:37 PM EST): Lost follow up with hand sx, will place new referal Assessment & Plan (08/28/2022 1:24 PM EDT): Will refer tp hand surgery for middle left hand trigger finger Mixed hyperlipidemia 07/10/2022 Assessment & Plan (10/18/2024 8:58 AM EDT): On atorvastatin 40mg, new labs ordered for next visit, will follow up results Assessment & Plan (01/11/2024 11:15 AM EDT): On atorvastatin 40mg, reinforced importance of diet/exercise, Assessment & Plan (07/10/2022 7:31 PM EST): On statin therapy, will place order for new labs for guidance of therapy Primary hypertension 07/10/2022 Assessment & Plan (10/18/2024 8:58 AM EDT): Controlled, keep low sodium diet and exercise as tolerated, keep bp log, target<130/80 Assessment & Plan (05/12/2024 9:54 AM EST): Controlled, keep low sodium diet, exercise, keep bp log, target <130/80, follow up in 3-4 months Assessment & Plan (01/11/2024 11:14 AM EDT): Controlled, at home runs lower usually in the 110-120's/70's-80's, continue losartan and chlorthalidone, follow up in 3 months, keep low sodium diet, bring bp log for next appointment Assessment & Plan (12/06/2023 12:29 PM EDT): -BP above target goal of <130/80 mmHg -continue losartan 100 mg every day and start chlorthalidone 25 mg qam -microalbumin: ordered today -ASCVD risk: repeat calculation pending las results from today -daily BP monitoring advised. Log provided -low salt diet and 30 min moderate intensity daily exercise recommended -Reviewed ED precautions to include chest pain, shortness of breath, severe headache, sudden vision changes or BP >=180/>=120 mmHg. -Call clinic if three or more BP readings >130/80 mmHg. -follow-up 1 month Assessment & Plan (06/19/2023 12:35 PM EST): Controlled, reinforced low sodium diet and exercise as tolerated, continue losartan 100mg daily Assessment & Plan (09/22/2022 12:32 PM EDT): Controlled at home, continue losartan, reinforced low sodium diet and exercise as tolerated, will follow up in 3 months Assessment & Plan (08/28/2022 1:22 PM EDT): Patient refers at home usually runs in the 130/80 range, he did not took his medication today, will follow up in 1 month, reinforced low sodium diet and exercise as tolerated Assessment & Plan (07/10/2022 7:29 PM EST): Today was 125/88 slightly above target, encouraged low sodium diet and exercise as tolerated Immunization due 05/18/2022 Encounters Date Type Department Care Team Description 05/10/2025 Orders Only GENERIC EXTERNAL DATA DEPARTMENT Provider, Generic External Data 04/13/2025 Results Follow-Up [facility] [address] [place] [address] Dina Alvarado RN XR Foot 3+ Views Right 04/12/2025 9:30 AM EST Office Visit [facility] [address] [place] [address] Selvin Linares MD Pressure injury of right foot, stage 1 (Primary Dx); Type 2 diabetes mellitus with foot ulcer, without long-term current use of insulin ([facility]) 04/12/2025 Travel 04/11/2025 Travel 04/11/2025 Telephone [facility] [address] [place] [address] Korey Kelly MD from Last 3 Months Immunizations Immunization Administration Dates Next Due Hep B, adult 05/18/2022,02/23/2022,01/26/2022 Influenza injectable quadriv alent preservative free 02/23/2022,02/27/2019 Pfizer Covid-19 Vaccine 12+ 10/02/2020, Tdap 01/26/2022 Social History Tobacco Use Types Packs/Day Years Used Date Smoking Tobacco: Never Smokeless Tobacco: Never Tobacco Cessation:Counseling Given: Not Answered Alcohol Use Standard Drinks/Week Comments Never 0 [...] Orientation Straight 04/06/2022 10 :36 AM EDT Last Filed Vital Signs Vital Sign Reading Time Taken Comments Blood Pressure 137/89 04/12/2025 9:30 AM EST Pulse 86 04/12/2025 9:30 AM EST Temperature 36.8 C (98.2 F) 04/12/2025 9:30 AM EST Respiratory Rate 21 04/12/2025 9:30 AM EST Oxygen Saturation 96% 04/12/2025 9:30 AM EST Inhaled Oxygen Concentration - - Weight 131 kg (289 lb) 04/12/2025 9:30 AM EST Height 195.6 cm (6' 5 ) 04/12/2025 9:30 AM EST Body Mass Index 34.27 04/12/2025 9:30 AM EST Plan of Treatment Health Maintenance Due Date Last Done Comments Dental Oral Exam 1980 Dental Prophylaxis 1980 Dental X-Ray: Bitewings 1980 Dental X-Ray: Full Mouth 1980 Disability Screening 1980 Eye Exam 1990 Alcohol/Substance Use Screening 1992 Family Planning (PISQ) 09/09/1995 HPV Vaccines (1 - Male 3-dose series) 09/09/1995 Pneumococcal Vaccine: Pediatrics (0 to 5 Years) and At-Risk Patients (6 to 49) Years (1 of 2 - PCV) 09/09/1999 SDOH Screening 11/28/2024 11/29/2023 Diabetes: Foot Exam 12/05/2024 12/06/2023, 12/06/2023, 12/06/2023, Additional history exists Diabetes: Urine Protein Screening 12/05/2024 12/06/2023, 12/16/2021, 03/06/2019 Lipid Panel 12/05/2024 12/06/2023, 08/06, 04/17/2022, Additional history exists COVID-19 Vaccine ( season) 2025 07/09/2021, 10/02/2020, 09/11/2020 Influenza Vaccine (#1) 2025 , 02/23/2022, 02/27/2019 Depression Screening 05/12/2025 05/12/2024, 05/12/20 Diabetes: Hemoglobin A1C 07/13/2025 025, 12/06/2023, 06/17/2023, Additional history exists Tobacco Screening 04/12/2026 04/12/2025 Zoster Vaccines (1 of 2) 2030 DTaP/Tdap/Td Vaccines (2 - Td or Tdap) 01/27/2032 01/26/2022 RSV Patients and Patients Aged 60 years or older (1 - 1-dose 75+ series) 09/09/2055 Hepatitis B Vaccines Completed 05/18/2022, 02/23/2022, 01/26/2022 HIV Screening Completed 08/28/2022, 12/16/2021 Hepatitis C Screening Completed 08/28/2022, 022 HIB Vaccines Aged Out No longer eligi ble based on patient's age to complete this topic Hepatitis A Vaccines Aged Out No long er eligible based on patient's age to complete this topic IPV Vaccines Aged Out No longer eligi ble based on patient's age to complete this topic Meningococcal B Vaccine Aged Out No l onger eligible based on patient's age to complete this topic Meningococcal Vaccine Aged Out No mani santos eligible based on patient's age to complete this topic RSV under 20 months Aged Out No longe r eligible based on patient's age to complete this topic Rotavirus Vaccines Aged Out No longer eligible based on patient's age to complete this topic Goals Goal Patient Goal Type Associated Problems Recent Progress Patient-Stated? Author Help patients manage their type 2 diabetes Care Plan Help patients manage their type 2 diabetes No Korey Kelly MD Weekly blood pressure task Care Plan Weekly blood pressure task No Korey Kelly MD Help patients manage their type 2 diabetes Care Plan Help patients manage their type 2 diabetes No Korey Kelly MD Patient has chronic kidney disease Care Plan Patient has chronic kidney disease No Korey Kelly MD Weekly blood pressure task Care Plan Weekly blood pressure task No Colon, Katheryn Weekly blood pressure task Care Plan Weekly blood pressure task No Colon, Katheryn Patient has chronic kidney disease Care Plan Patient has chronic kidney disease No Colon, Katheryn Patient has chronic kidney disease Care Plan Patient has chronic kidney disease No Colon, Katheryn Procedures Procedure Name Priority Date/Time Associated Diagnosis Comments COMPREHENSIVE METABOLIC PANEL Routine 05/10/2025 11:17 PM EST CBC WITH AUTO DIFFERENTIAL Routine 05/10/2025 11:17 PM EST XR FOOT 3+ VIEWS RIGHT Routine 10:39 AM EST Pressure injury of right foot, stage 1 POCT GLUCOSE Routine 04/12/2025 10:21 AM EST Type 2 diabetes mellitus with foot ulcer, without long-term current use of insulin (HCC) POCT GLYCATED HEMOGLOBIN, TOTAL Routine 04/12/2025 10:20 AM EST Type 2 diabetes mellitus with foot ulcer, without long-term current use of insulin (HCC) ALBUMIN, RANDOM URINE W/CREATININE Routine 12/06/2023 1:39 PM EDT LIPID PANEL, STANDARD Routine 12/06/2023 10:18 AM EDT Type 2 diabetes mellitus with foot ulcer, without long-term current use of insulin (CMS/HCC) HEPATITIS C AB W/REFL TO HCV RNA, QN, PCR Routine 08/28/2022 11:22 AM EDT Type 2 diabetes mellitus with foot ulcer, without long-term current use of insulin ([facility]) HIV 1 RNA, QN PCR W/RFL PERLA (RTI,PI,INTEGRASE) Routine 08/28/2022 11:22 AM EDT Type 2 diabetes mellitus with foot ulcer, without long-term current use of insulin ([facility]) from Last 3 Months or Most Recently Relevant to Health Maintenance Results * (ABNORMAL) CBC auto differential (05/10/2025 11:17 PM EST) White Blood Count 9.5 4.8 - 10.8 X10*3/uL [facility] Red Blood Count 4.26(L) 4.60 - 5.80 X10*6/uL [facility] Hemoglobin 12.8(L) 14.0 - 18.0 g/dl [facility] Hematocrit 37.7(L) 42.0 - 52.0 % [facility] Mean Corpuscular Volume 88.5 80.0 - 98.0 fL [facility] Mean Corpuscular Hemoglobin 30.0 27.0 - 33.0 pg [facility] Mean Corpuscular HGB Conc 34.0 31.0 - 36.0 g/dl [facility] Red Cell Distribution Width 13.0 11.0 - 16.0 % [facility] Platelet Count 201 160 - 400 X10*3/uL [facility] Mean Platelet Volume 10.0 9.4 - 12.4 fL [facility] Neutrophils Percent Auto 70.3 45 - 73 % [facility] Imm Gran Pct Auto 0.3 0.0 - 0.4 % [facility] Lymphocytes Percent Auto 20.1 20 - 40 % [facility] Monocytes Percent Auto 6.6 2 - 11 % [facility] Eosinophils Percent Auto 2.3 0 - 4 % [facility] Basophils Percent Auto 0.4 0 - 2 % [facility] NRBC Pct Auto 0.0 0.0 - 0.2 /100WBC [facility] Neutrophils Absolute Auto 6.7 2.0 - 8.3 x10*3/uL [facility] Imm Gran Abs Auto 0.03 0.00 - 0.03 X10*3/uL [facility] Lymphocytes Absolute Auto 1.9 1.2 - 4.9 X10*3/uL [facility] Monocytes Absolute Auto 0.6 0.1 - 1.2 X10*3/uL [facility] Eosinophils Absolute Auto 0.2 0.0 - 0.4 X10*3/uL [facility] Basophils Absolute Auto 0.0 0.0 - 0.2 X10*3/uL [facility] NRBC Abs Auto 0.000 0.0 - 0.012 X10*3/uL [facility] 05/10/2025 11:1 7 PM EST 05/10/2025 11:22 PM EST us Generic External Data Provider LAB BLOOD ORDERAB LES Final Result [facility] [address] [place] [phone] * (ABNORMAL) Comprehensive Metabolic Panel (05/10/2025 11:17 PM EST) Sodium 140 135 - 145 mmol/L [facility] Potassium 4.0 3.3 - 5.1 mmol/L [facility] Chloride 103 96 - 108 mmol/L [facility] Carbon Dioxide 28 22 - 29 mmol/L [facility] Anion Gap 13 12 - 20 [facility] Urea Nitrogen (BUN) 19(H) 9 - 16 mg/dL [facility] Creatinine, Serum 1.38 0.5 - 1.4 mg/dL [facility] Creatinine Clr Calc Pharmacy 103.6 [facility] Comment:eGFR (calculated fro m the MDRD study equation) and eCrCl(calculated from the Cockcroft-Gault equation) are based ondifferent parameters and may not yield comparable results.If eCrCl result is absurd, please check patient'sheight/weight. Estimated Glomerular Filt Rate 56 [facility] Comment:Chronic Kidney Disea se: Estimated GFR < 60 mL/min/[id number] Kidney Disease: Estimated GFR < 15 mL/min/1.73m2 Glucose 152(H) 60 - 115 mg/dL [facility] Calcium 8.9 8.4 - 10.2 mg/dL [facility] Bilirubin, Total 0.8 0.0 - 1.0 mg/dL [facility] Aspartate Amino Transferase 19 5 - 37 U/L [facility] Alanine Aminotransferase 30 0 - 40 U/L [facility] Total Protein 7.2 6.5 - 8.0 g/dL [facility] Albumin Level 4.4 3.5 - 5.0 g/dL [facility] Alkaline Phosphatase 70 39 - 117 U/L [facility] 05/10/2025 11:1 7 PM EST 05/10/2025 11:22 PM EST us Generic External Data Provider LAB BLOOD ORDERAB LES Final Result [facility] [address] [place] [phone] * XR Foot 3+ Views Right (04/12/2025 10:39 AM EST) Anatomical Region Laterality Modality Lower Extremities, Foot Right Radiogra phic Imaging 04/12/2025 10:3 9 AM EST Narrative 04/12/2025 10:54 AM EST [address] [address] XRay Report Signed Patient: Trav Mata MR#: [id number] 2 : 1980 Acct:[id number] Age/Sex: 44 / M ADM Date: 04/12/25 Loc: [facility] Attending Dr: Selvin Linares MD Ordering Physician: Selvin Linares MD Date of Service: 04/12/25 Procedure(s): XR foot RT min 3V Accession Number(s): [id number] cc: Selvin Linares MD; Korey Kelly MD Reason for Exam: Right foot ulcer EXAMINATION: XR FOOT, RIGHT CLINICAL INFORMATION: Right foot ulcer COMPARISON: None available. TECHNIQUE: AP, lateral, and oblique views of the right foot. FINDINGS: There is valgus deformity of the second digit. There is a chronic fracture through the proximal metaphysis of the fourth proximal phalanx with medial displacement. There is mild to moderate degenerative changes in the MTP and IP joints of the foot with varying degrees of joint space narrowing and marginal osteophytes. There is moderate degenerative change in the intermetatarsal, tarsometatarsal, and midfoot tarsal joints with sclerosis and osteophytes and degenerative cystic change. There are small calcaneal osteophytes. No periosteal new bone formation or bony destructive changes are identified. XR/XR foot RT min 3V IMPRESSION: Moderate degenerative changes in the midfoot and forefoot with valgus deformity of the second digit. Chronic fracture through the base of the fourth proximal phalanx with deformity. No definitive evidence of osteomyelitis. Consider MRI without and with IV contrast if there is high suspicion. Electronically signed by: Hiro Zhang MD 04/12/2025 10:51 AM [facility] Dictated By: Hiro Zhang MD Signed By: <Electronically signed by Hiro Zhang MD in OV> 04/12/25 1051 DD/ 1039 TD/TT: 04/12/25 1042 Bait Digger: Procedure Note Donotuseinterpreter, Image - 04/12/[address] [address] XRay Report Signed Patient: Trav MataMR#: [id number] 2 : 1980Acct:[id number] Age/Sex: 44 / MADM Date: 04/12/25 Loc: [facility] Attending Dr: Selvin Linares MD Ordering Physician: Selvin Linares MD Date of Service: 04/12/25 Procedure(s): XR foot RT min 3V Accession Number(s): [id number] cc: Selvin Linares MD; Korey Kelly MD Reason for Exam: Right foot ulcer EXAMINATION: XR FOOT, RIGHT CLINICAL INFORMATION: Right foot ulcer COMPARISON: None available. TECHNIQUE: AP, lateral, and oblique views of the right foot. FINDINGS: There is valgus deformity of the second digit. There is a chronic fracture through the proximal metaphysis of the fourth proximal phalanx with medial displacement. There is mild to moderate degenerative changes in the MTP and IP joints of the foot with varying degrees of joint space narrowing and marginal osteophytes. There is moderate degenerative change in the intermetatarsal, tarsometatarsal, and midfoot tarsal joints with sclerosis and osteophytes and degenerative cystic change. There are small calcaneal osteophytes. No periosteal new bone formation or bony destructive changes are identified. XR/XR foot RT min 3V IMPRESSION: Moderate degenerative changes in the midfoot and forefoot with valgus deformity of the second digit. Chronic fracture through the base of the fourth proximal phalanx with deformity. No definitive evidence of osteomyelitis. Consider MRI without and with IV contrast if there is high suspicion. Electronically signed by: Hiro Zhang MD 04/12/2025 10:51 AM EST Dictated By: Hiro Zhang MD Signed By: <Electronically signed by Hiro Zhang MD in OV> 04/12/25 1051 DD/ 1039 TD/TT: 04/12/25 1042 Bait Digger: us Selvin Linares MD IMG XR PROCEDURES Final Res ult * POCT Glucose (04/12/2025 10:21 AM EST) Glucose Blood, POC 172 60 - 200 mg/dL QC Media Lot # [id number] Lot# Expiration Date Comment:fasting Blood Capillary blood specimen / Unknown 04/12/2025 10:21 AM EST us Selvin Linares MD POINT OF CARE TEST ENTER/ED IT ORDERABLES Final Result * (ABNORMAL) POCT Hgb A1c (04/12/2025 10:20 AM EST) Hemoglobin A1C 7.0(A) 4.0 - 5.7 % QC Media Lot # [id number] Lot# Expiration Date ,202,[id number] Blood 04/12/2025 10:2 0 AM EST us Selvin Linares MD POINT OF CARE TEST ENTER/ED IT ORDERABLES Final Result * Albumin, Random Urine W/Creatinine (12/06/2023 1:39 PM EDT) Creatinine, Urine 110.96 mg/dL [facility] Microalbumin Urine 9.0 mg/L [facility] Microalbum Creatinine Ratio Ur 8.1 <30 ug/mg cr [facility] Comment:Albumin/Creatinine R atio Reference Ranges: Normal: < 30 ug/mg creatinine Microalbuminuria: 30 - 300 ug/mg creatinineClinical Albuminuria: > 300 ug/mg creatinine 12/06/2023 1:39 PM EDT 12/06/2023 2:18 PM EDT us Korey Gibbs MD LAB URINE ORDERABL ES Final Result [facility] [address] [place] [phone] * (ABNORMAL) Lipid Panel, Standard (12/06/2023 10:18 AM EDT) Triglycerides 103 <150 mg/dL [facility] Comment:Desirable Triglyceri de: less than 150 mg/dLBorderline High Triglyceride 150-199 mg/dLHigh Triglyceride: 200-499 mg/dLVery High Triglyceride: greater than or equal to 5OO mg/dL Cholesterol 155 <200 mg/dL [facility] Comment:Desirable Cholestero l: less than 200 mg/dLBorderline High Cholesterol: 200-239 mg/dLHigh Cholesterol: greater than 239 mg/dL LDL Cholesterol Calculated 99 <100 mg/dL [facility] Comment:Desirable LDL: less than 100 mg/dLNear Optimal/Above Optimal LDL: 110- 129 mg/dLBorderline High LDL: 130-159 mg/dLHigh LDL: 160-189 mg/dLVery High LDL: greater than or equal to 190 mg/dL HDL Cholesterol 36(L) >40 mg/dL [facility] Comment:Desirable HDL: great er than 40 mg/dL Note: This HDL assay may give artificially low results in patients with liver disease. Blood Venous blood specimen / Unknown 12/06/2023 10:18 AM EDT 12/06/2023 2:16 PM EDT Korey Gibbs MD LAB BLOOD ORDERABL ES Final Result [facility] [address] [place] [phone] * HIV-1 RNA, Quantitative, Real-Time PCR with Reflex to Genotype (RTI, PI, Integrase) (08/28/2022 11:22 AM EDT) Pathologist [facility] HIV 1 RNA, QN PCR NOT DETECTED copies/mL [facility], HIV 1 RNA, QN PCR NOT DETECTED Log copies/mL [facility], Comment: REFERENCE RANGE: NOT DETECTED copies/mL NOT DETECTED Log copies/mL This test was performed using Real-Time Polymerase Chain Reaction. Reportable range is 20 to 10,000,000 copies/mL (1.30-7.00 Log copies/mL). 08/28/2022 11:2 2 AM EDT 08/28/2022 11:23 AM EDT Narrative [facility] - 08/31/2022 4:25 PM EDT FASTING:YES FASTING: YES us Korey Gibbs MD LAB BLOOD ORDERABL ES Final Result [facility] [address] [place] [address], [place] [address] [facility], [address] [place] [address] * Hepatitis C Antibody with Reflex to HCV, RNA, Quantitative, Real-Time PCR (08/28/2022 11:22 AM EDT) Hepatitis C Antibody NON-REACT JOSE MARTIN NON-REACT JOSE MARTIN [employer] Index <0.02 <1.00 [employer] Comment: HCV antibody was non-reactive. There is no laboratory evidence of HCV infection. In most cases, no further action is required. However, if recent HCV exposure is suspected, a test for HCV RNA (test code 06522) is suggested. For additional information please refer to http://education.[employer]/faq/TOT45c7 (This link is being provided for informational/ educational purposes only.) Blood Venous blood specimen / Unknown 08/28/2022 11:22 AM EDT 08/28/2022 11:23 AM EDT Narrative [facility] - 08/31/2022 4:25 PM EDT FASTING:YES FASTING: YES Korey Gibbs MD LAB BLOOD ORDERABL ES Final Result [facility] [address], [place] [address] [employer] [address] [place] [address] from Last 3 Months or Most Recently Relevant to Health Maintenance Additional Health Concerns Active Problems Noted Date Diagnosed Date Help patients manage their type 2 diabetes 04/19 Weekly blood pressure task 04/19/2025 Help patients manage their type 2 diabetes 04/19 Patient has chronic kidney disease 04/19/2025 Weekly blood pressure task 04/20/2025 Weekly blood pressure task 04/20/2025 Patient has chronic kidney disease 04/20/2025 Patient has chronic kidney disease 04/20/2025 Insurance [facility] Care Teams Certified Personal Chef Relationship Specialty Start Date End Date Korey Kelly MD [address] [place] [address] [place] [phone] PCP - General Internal Medicine 03/09/19
--- OUTSIDE RECORDS SUMMARY | 2025-05-11 00:40 | XMS_ITS | Encounter Summary ---
Author Organization [employer] Address [address] [place] [address] 7 [place] [address] Care Team Providers Care Marker Delivery Name Role Phone Korey Kelly MD Primary Care Prov ider Encounter Details Date Type Department Care Team ([facility] st Contact Info) Description 04/24/[address] [facility] [address] [place] [address] Iza Wells, RN [address] [place] [address] Social History Tobacco Use Types Packs/Day Years [...] on filedocumented in this encounter Care Teams Marker Delivery Relationship Specialty Start Date End Date Korey Kelly MD [address] [place] [address] PCP - General Internal Medicine 03/09/19 documented as of this encounter
--- OUTSIDE RECORDS SUMMARY | 2025-05-11 00:40 | XMS_ITS | Encounter Summary ---
Author Organization [facility] Address [address] [place] [address] 7 [place] [address] Care Team Providers Care Hyperbaric Technician Name Role Phone Korey Kelly MD Primary Care Prov ider Reason for Visit * Reason Comments Med Refill Encounter Details Date Type Department Care Team ([facility] st Contact Info) Description 12/09/2024 Refill [facility] [address] [place], [place] [phone] Korey Kelly MD [address] [place] [address] Social History Tobacco Use Types Packs/Day Years [...] documented as of this encounter Care Teams Hyperbaric Technician Relationship Specialty Start Date End Date Korey Kelly MD [address] [place] [phone] PCP - General Internal Medicine 03/09/19 documented as of this encounter
--- OUTSIDE RECORDS SUMMARY | 2025-05-11 00:40 | XMS_ITS | Encounter Summary ---
Author Organization [employer] Address [address] [facility] 7t [place] [address] Care Team Providers Care Regrinder Operator Name Role Phone Korey Kelly MD Primary Care Prov ider Encounter Details Date Type Department Care Team ([facility] st Contact Info) Description 04/13/2025 Results Follow-Up [facility] [address] [place], [place] [phone] Dina Alvarado RN XR Foot 3+ Views Right Social History Tobacco Use Types Packs/Day Years [...] documented as of this encounter Care Teams Regrinder Operator Relationship Specialty Start Date End Date Korey Kelly MD [address] [place] [id number] PCP - General Internal Medicine 03/09/19 documented as of this encounter
--- OUTSIDE RECORDS SUMMARY | 2025-05-11 00:40 | XMS_ITS | Encounter Summary ---
Author Organization [employer] Address [address] [place] [address] 7 [place] [address] Care Team Providers Care Administrative Job Titles Name Role Phone Korey Kelly MD Primary Care Prov ider Encounter Details Date Type Department Care Team (Late st Contact Info) Description 05/10/2025 Orders Only GENERIC EXTERNAL DATA DEPARTMENT Provider, Generic External Data Social History Tobacco Use Types Packs/Day Years [...] on file documented as of this encounter Goals Goal Patient Goal Type Associated Problems [...] has chronic kidney disease No Colon, Katheryn documented as of this encounter Procedures Procedure Name Priority Date/Time Associated Diagnosis Comments CBC WITH AUTO DIFFERENTIAL Routine 05/10/2025 11:17 PM EST COMPREHENSIVE METABOLIC PANEL Routine 05/10/2025 11:17 PM EST documented in this encounter Results * (ABNORMAL) Comprehensive Metabolic Panel (05/10/2025 11:17 PM EST) Sodium 140 135 - 145 mmol/L [facility] Potassium 4.0 3.3 - 5.1 mmol/L [facility] Chloride 103 96 - 108 mmol/L [facility] Carbon Dioxide 28 22 - 29 mmol/L [facility] Anion Gap 13 12 - 20 [facility] Urea Nitrogen (BUN) 19(H) 9 - 16 mg/dL [facility] Creatinine, Serum 1.38 0.5 - 1.4 mg/dL [facility] Creatinine Clr Calc Pharmacy 103.6 [facility] Comment:eGFR (calculated fro m the MDRD study equation) and eCrCl(calculated from the Cockcroft-Gault equation) are based ondifferent parameters and may not yield comparable results.If eCrCl result is absurd, please check patient'sheight/weight. Estimated Glomerular Filt Rate 56 [facility] Comment:Chronic Kidney Disea se: Estimated GFR < 60 mL/min/1.87p2Fghjur Kidney Disease: Estimated GFR < 15 mL/min/1.73m2 Glucose 152(H) 60 - 115 mg/dL [facility] Calcium 8.9 8.4 - 10.2 mg/dL [facility] Bilirubin, Total 0.8 0.0 - 1.0 mg/dL [facility] Aspartate Amino Transferase 19 5 - 37 U/L [facility] Alanine Aminotransferase 30 0 - 40 U/L [facility] Total Protein 7.2 6.5 - 8.0 g/dL [facility] Albumin Level 4.4 3.5 - 5.0 g/dL [facility] Alkaline Phosphatase 70 39 - 117 U/L [facility] 05/10/2025 11:1 7 PM EST 05/10/2025 11:22 PM EST us Generic External Data Provider LAB BLOOD ORDERAB LES Final Result [facility] [address] [place] [address] [phone] * (ABNORMAL) CBC auto differential (05/10/2025 11:17 PM EST) White Blood Count 9.5 4.8 - 10.8 X10*3/uL [facility] Red Blood Count 4.26(L) 4.60 - 5.80 X10*6/uL [facility] Hemoglobin 12.8(L) 14.0 - 18.0 g/dl [facility] Hematocrit 37.7(L) 42.0 - 52.0 % [facility] Mean Corpuscular Volume 88.5 80.0 - 98.0 fL [facility] Mean Corpuscular Hemoglobin 30.0 27.0 - 33.0 pg [facility] Mean Corpuscular HGB Conc 34.0 31.0 - 36.0 g/dl [facility] Red Cell Distribution Width 13.0 11.0 - 16.0 % [facility] Platelet Count 201 160 - 400 X10*3/uL [facility] Mean Platelet Volume 10.0 9.4 - 12.4 fL [facility] Neutrophils Percent Auto 70.3 45 - 73 % [facility] Imm Gran Pct Auto 0.3 0.0 - 0.4 % [facility] Lymphocytes Percent Auto 20.1 20 - 40 % [facility] Monocytes Percent Auto 6.6 2 - 11 % [facility] Eosinophils Percent Auto 2.3 0 - 4 % [facility] Basophils Percent Auto 0.4 0 - 2 % [facility] NRBC Pct Auto 0.0 0.0 - 0.2 /100WBC [facility] Neutrophils Absolute Auto 6.7 2.0 - 8.3 x10*3/uL [facility] Imm Gran Abs Auto 0.03 0.00 - 0.03 X10*3/uL [facility] Lymphocytes Absolute Auto 1.9 1.2 - 4.9 X10*3/uL [facility] Monocytes Absolute Auto 0.6 0.1 - 1.2 X10*3/uL [facility] Eosinophils Absolute Auto 0.2 0.0 - 0.4 X10*3/uL [facility] Basophils Absolute Auto 0.0 0.0 - 0.2 X10*3/uL [facility] NRBC Abs Auto 0.000 0.0 - 0.012 X10*3/uL [facility] 05/10/2025 11:1 7 PM EST 05/10/2025 11:22 PM EST us Generic External Data Provider LAB BLOOD ORDERAB LES Final Result Performing Organization Address City/State/[facility] Co de Phone Number [facility] [address] [place] [address] [phone] documented in this encounter Visit Diagnoses Not on filedocumented in this encounter Additional Health Concerns Active Problems Noted Date Diagnosed Date Help patients manage their type 2 diabetes 04/19 Weekly blood pressure task 04/19/2025 Help patients manage their type 2 diabetes 04/19 Patient has chronic kidney disease 04/19/2025 Weekly blood pressure task 04/20/2025 Weekly blood pressure task 04/20/2025 Patient has chronic kidney disease 04/20/2025 Patient has chronic kidney disease 04/20/2025 Assessment Noted Time PHQ-9 Depression Total Score: 0 05/12/20 24 9:37 AM EST documented as of this encounter Care Teams Administrative Job Titles Relationship Specialty Start Date End Date Korey Kelly MD [address] [place] [phone] PCP - General Internal Medicine 03/09/19 documented as of this encounter
--- OUTSIDE RECORDS SUMMARY | 2025-05-11 00:40 | XMS_ITS | Clinical Summary ---
Author Organization [facility] Address [address] [facility] [address] [place] [phone] Phone Care Team Providers Care Feed Mill Lab Technician Name Role Phone Korey Kelly MD Primary Care Prov ider Allergies No known active allergies Medications docusate sodium (COLACE) 100 MG capsule Take 1 capsule (100 mg total) by mouth 2 (two) times a day as needed. 30 capsule 9 Active lactobacillus rhamnosus, GG, (CULTURELLE) 10 billion cell capsule Take 1 capsule by mouth 2 (two) times a day. 60 capsule 9 Active lancets Misc Test up to 3 times a day, as directed. 100 each 9 Active alcohol PadM Use 3 times a day, as directed. 100 each 9 Active FREESTYLE TEST Strp stripsIndicati ons:Type 2 diabetes mellitus with diabetic polyneuropathy , without long-term current use of insulin 1 each by Miscellaneous route 4 (four) times a day with meals and nightly. 150 strip 11 9 Active metFORMIN (GLUCOPHAGE-XR ) 500 MG 24 hr tabletIndicati ons:Type 2 diabetes mellitus with diabetic polyneuropathy , without long-term current use of insulin Take 2 tablets (1,000 mg total) by mouth 2 (two) times a day. 60 tablet 11 9 Active Active Problems Problem Noted Date Diagnosed Date Other constipation 02/23/2019 Assessment & Plan (02/24/2019 7:55 PM EDT): Continue bowel regimen. Bacteremia due to methicilli n susceptible Staphylococcus aureus (MSSA) 02/14/2019 Assessment & Plan (02/26/2019 1:24 PM EDT): Currently he will be on Zosyn through 03/14 when he follows up with ID, Dr. Perez at [facility]. He will see Dr. Christophe Prieto on 03/08 with the goal of determining whether his initial presentation was in fact osteomyelitis or just a diabetic foot wound. If it is thought that he just had a foot wound, Dr. Perez can determine whether discontinuation of antibiotics is appropriate at their appointment, that would be 4 weeks or if he needs another 2 weeks of antibiotics. Diabetic foot infection 02/12/2019 Assessment & Plan (03/13/2019 1:37 PM EDT): Followed by surgery, being evaluated for possible amputation depending on objective assessments regarding antibiotic effect on osteomyelitis Followed by ID/wound management, on IV Zosyn currently Improved glucose control will help healing process Assessment & Plan (02/26/2019 1:22 PM EDT): Patient presented with a diabetic wound infection MRI on February 17 was consistent with osteomyelitis however there is been some debate as to whether this diagnosis is accurate. PICC line placed without complications. Blood cultures remain negative. He currently does not have insurance therefore his treatment is [id number] however he will have insurance March 07. The plan at this point is for him to be discharged home on Zosyn which he will pay for [id number]. He will follow-up with infectious disease at [facility] on 03/14. He will follow-up with Dr. Christophe Prieto's PA at [facility] to evaluate his foot/MRI to make a final determination as to whether this is osteomyelitis. He will need to remain on antibiotics for at least 4 (03/13) to 6 (03/27) weeks depending on whether diagnosis of osteomyelitis has been made. He now has a primary care doctor at [facility] and an appointment on 02/27. Discharge to he can see his primary care doctor and then the visiting nurses will start antibiotics at home. He should remain nonweightbearing. He will need to follow-up with visiting nurses and/or wound care clinic. Type 2 diabetes mellitus wit h neurologic complication, without long-term current use of insulin 02/12/2019 Assessment & Plan (04/13/2019 12:41 PM EST): Much improved control after brief period of insulin therapy Continues on full dose of Metformin without any issues Encouraged to continue healthy eating We will follow up in 6 months, encouraged to call with any questions or concerns Assessment & Plan (03/13/2019 1:42 PM EDT): Overall good glucose response to modest insulin dosing Advised to continue his current doses of Lantus (10u daily) and Humalog (4u at meals, advised to adjust this down for healthy low carb meals to assess true requirement) Will start Metformin ER 500mg once daily, we discussed optimizing this dose slowly to a goal 2000mg daily With addition of Metformin encouraged to monitor blood sugars since he may require reduced insulin dosing Will likely do well on noninsulin regimen in the future, given current infection and good response to insulin therapy we will continue this therapy and adjust judiciously to maintain good overall glycemic control We discussed the importance of lifestyle modifications, Will has already made significant changes to his eating patterns Will return tomorrow to meet with our RD CDE We will follow up in one month, encouraged to call with any questions or concerns Assessment & Plan (02/26/2019 1:20 PM EDT): Blood sugars have been well controlled in the hospital he has not required any insulin sliding scale. Continue current regimen. Prescription sent to [facility] include Lantus, NovoLog, diabetic supplies and prescription for glucometer and supplies. He has an appointment with Dr. Salinas on 13 March. We went over how to use his insulin, what each insulin was for and insulin sliding scale. We reviewed that elevating sugars may be a sign of infection and if his sugars start to elevate although his diet has not changed and he should reach out to his primary care doctor and or his wound doctor and have his foot evaluated. Complex Social Issues 02/12/2019 Assessment & Plan (02/21/2019 4:22 PM EDT): As noted above. field training manager in the process of figuring out his insurance coverage. At the time being, he does not have any insurance to cover his infusion for IV antibiotics as an outpatient.. Immunizations Immunization Administration Dates Next Due COVID-19 (Pre-03/29) Pfizer Vaccine, mRNA, PF ,09/11/2020 COVID-19 (Pre) Pfizer Vaccine, mRNA, soha-sucrose, PF 07/09/2021 Influenza Quadrivalent Preservative Free IM 02/06 Family History Medical History Relation Comments Alcohol abuse Brother 1 No Known Problems Father Alcohol abuse Mother Diabetes Mother GDM and they typ e 2 diabetes; charcot joint, s/p amputation of toes No Known Problems Sister Relation Status Comments Brother 1 Alive half brother Brother 2 Alive half brother Father Alive Mother Alive Sister Alive Social History Tobacco Use Types Packs/Day Years Used Date Smoking Tobacco: Never Smokeless Tobacco: Never Alcohol Use Standard Drinks/Week Comments Yes 0 (1 standard drink = 0.6 oz pur e alcohol) very rare Education Answer Date Recorded Are you interested in more education? Not on mary e 10/02/2022 Are you concerned about learning? Not on file 10/02/2022 No 10/02/2022 No 10/02/2022 Digital Access Answer Date Recorded No 10/31/2022 No 10/31/2022 No 10/31/2022 Reliable internet access at home? Not on file 10/31/2022 Device with a working camera? Not on file Sex and Gender Information Value Date Recorded Sex Assigned at Not on file Legal Sex Male 3:42 PM EDT Gender Identity Not on file Sexual Orientation Not on file Last Filed Vital Signs Vital Sign Reading Time Taken Comments Blood Pressure 130/78 04/13/2019 11:11 AM EST Pulse 87 04/13/2019 11:11 AM EST Temperature 36.8 C (98.3 F) 03/30/2019 11:30 AM EDT Respiratory Rate 18 03/30/2019 11:30 AM EDT Oxygen Saturation 99% 03/30/2019 11:30 AM EDT Inhaled Oxygen Concentration - - Weight 128.8 kg (284 lb) 02/17/2021 10:48 AM EDT Height 190.5 cm (6' 3 ) 02/17/2021 10:48 AM EDT Body Mass Index 35.5 02/17/2021 10:48 AM EDT Plan of Treatment Health Maintenance Due Date Last Done Comments BLOOD PRESSURE 1980 DEPRESSION SCREENING 1992 HEPATITIS C SCREENING 1998 PNEUMOCOCCAL VACCINES (0-49 years) (1 of 2 - PCV) 09/09/1999 DIABETIC EYE EXAM 02/12/2019 LIPID PANEL 03/06/2020 03/06/2019 URINE MICROALBUMIN/CREATININE RATIO 03/06/2020 03/06/2019 CREATININE LEVEL 03/20/2020 03/20/2019, 12/2018, 03/06/2019, Additional history exists HEMOGLOBIN A1C 09/16/2023 06/17/2023, 08/05, 08/18/2021, Additional history exists INFLUENZA VACCINE (#1) 2025 02/23/2022, 2018 COVID-19 VACCINE ( season) 2025 07/09/2021, 10/02/2020, 09/11/2020 Adult Td,Tdap Booster 01/27/2032 01/26/2022 HIV ONE-TIME SCREENING (18-65 YEARS) Completed 03/13/2019 SMOKING STATUS SCREENING (Once After 26 Yrs) Completed 03/15/2019 HEPATITIS A VACCINES Aged Out No long er eligible based on patient's age to complete this topic HIB VACCINES Aged Out No longer eligi ble based on patient's age to complete this topic MENINGOCOCCAL VACCINES (ACWY) Aged Out No longer eligible based on patient's age to complete this topic MENINGOCOCCAL VACCINES (B) Aged Out N o longer eligible based on patient's age to complete this topic Medical Devices Not on file Procedures Procedure Name Priority Date/Time Associated Diagnosis Comments POCT HEMOGLOBIN A1C Routine 08/17/2022 1 0:02 AM EDT Type 2 diabetes mellitus with diabetic mononeuropathy, without long-term current use of insulin COMPREHENSIVE METABOLIC PANEL (CMP) Routine 03/20/2019 2:00 PM EDT Diabetic foot ulcer associated with other specified diabetes mellitus, unspecified laterality, unspecified part of foot, unspecified ulcer stage MICROALBUMIN/CREATINI NE RATIO, RANDOM URINE Routine 03/06/2019 9:30 AM EDT Diabetic neurogenic arthropathy Type 2 diabetes mellitus with diabetic polyneuropathy, without long-term current use of insulin Bacteremia due to methicillin susceptible Staphylococcus aureus (MSSA) Diabetic foot infection LIPID PANEL Routine 03/06/2019 9:30 AM EDT Diabetic neurogenic arthropathy Type 2 diabetes mellitus with diabetic polyneuropathy, without long-term current use of insulin Bacteremia due to methicillin susceptible Staphylococcus aureus (MSSA) Diabetic foot infection from Last 3 Months or Most Recently Relevant to Health Maintenance Results * (ABNORMAL) POCT Hemoglobin A1c (08/17/2022 10:02 AM EDT) Hemoglobin A1c 8.6(A) 4.2 - 5.8 % [facility] Other 08/17/2022 10:0 2 AM EDT Paris Salinas MD LAB POCT ENTER/EDIT ORDERABLES Final Result Performing Organization Address City/State/[facility] Co de Phone Number [facility] [address] [place] [address], [facility] * (ABNORMAL) Comprehensive metabolic panel (03/20/2019 2:00 PM EDT) SODIUM 140 133 - 146 mmol/L [facility] POTASSIUM 4.2 3.3 - 5.1 mmol/L [facility] CHLORIDE 103 96 - 108 mmol/L [facility] CO2 25 21 - 35 mmol/L [facility] BUN 19 6 - 19 mg/dL [facility] CREATININE 0.80 0.5 - 1.5 mg/dL [facility] GLUCOSE 111(H) 70 - 99 mg/dL [facility] ALBUMIN 4.3 3.9 - 4.8 g/dL [facility] TOTAL PROTEIN 7.2 6.5 - 8.0 g/dL [facility] CALCIUM 9.7 8.4 - 10.3 mg/dL [facility] ALKALINE PHOSPHATASE 66 39 - 117 U/L [facility] TOTAL BILIRUBIN 0.5 0.0 - 1.2 mg/dL [facility] AST 16 0 - 37 U/L [facility] ALT 26 0 - 40 U/L [facility] GLOBULIN 2.9 1 - 4.8 g/dL [facility] EGFR 113 >59 mL/min/1.7 3m2 [facility] Comment:If patient is black, multiply result by 1.159. Estimated glomerular filtration rate calculated using the CKD-EPI equation. ANION GAP 16 10 - 20 mmol/L [facility] Blood 03/20/2019 2:00 PM EDT 03/20/2019 3:29 PM EDT us Asad Angel MD LAB BLOOD BKR ORDERABLE S Final Result Performing Organization Address [facility] Co de Phone Number [address] [address] * Microalbumin/creatinine ratio, random urine (03/06/2019 9:30 AM EDT) URINE MICROALBUMIN <1.2 0 - 2.3 mg/dL [facility] URINE CREATININE 93 mg/dL [facility] MICROALB/CRE RATIO NOT CALCULATED 0 - 20 mg/g Cre [facility] Comment:due to Microalbumin <1.2 Urine (Urine) 03/06/2019 9:3 0 AM EDT 03/07/2019 11:14 AM EDT us Asad Angel MD LAB URINE ORDERABLES Fi nal Result Performing Organization Address [facility] Co de Phone Number [address] [address] * (ABNORMAL) Lipid panel (03/06/2019 9:30 AM EDT) HDL 27 mg/dL [facility] Comment: Interpretation <40 mg/dL: Low HDL cholesterol (major risk factor for CHD) Greater than or equal to 60 mg/dL: High HDL cholesterol ( negative risk factor for CHD) HDL - cholesterol is affected by a number of factors, e.g. smoking, excerise, hormones, sex and age. CHOLESTEROL 192 0 - 240 mg/dL [facility] TRIGLYCERIDES 132 30 - 160 mg/dL [facility] LDL 139(H) 50 - 129 mg/dL [facility] Comment: LDL levels in terms of risk for coronary heart disease: <100 mg/dL: Optimal 100-129 mg/dL: Near or above optimal 130-159 mg/dL: Borderline high 160-189 mg/dL: High >190 mg/dL: Very High CARDIAC RISK RATIO 7.1(H) 3.4 - 5.0 [facility] Blood 03/06/2019 9:30 AM EDT 03/07/2019 11:15 AM EDT Asad Angel MD LAB BLOOD BKR ORDERABLE S Final Result [facility] [address] [place] [address] from Last 3 Months or Most Recently Relevant to Health Maintenance Insurance [facility] [place] [address] [place] [address] [facility] Member Subscriber Plan / Payer (Ef fective 2019-Present) Name:Trav Mata Relation to Subscriber:Self Name:Trav Mata Payer ID:Not on file Type:HMO Address: [place] [id number] Advance Directives For more information, please contact: [phone] (9AM - 5PM Sydnie/[facility], Wednesday-Wednesday) * Full Code (Confirmed) (Latest Code Status on File) Date Activated Date Inactivated Comments 02/12/2019 7:38 PM 02/27/2019 11:35 AM Question Answer Comments Code Status Confirmed With: Patient Care Teams Feed Mill Lab Technician Relationship Specialty Start Date End Date Korey Kelly MD [address] [place] [id number] PCP - General 03/09/19 Additional Source Comments The information contained in this document represents components of the legal health record. It is not the complete legal health record.[facility]
--- OUTSIDE RECORDS SUMMARY | 2025-05-11 00:40 | XMS_ITS | Encounter Summary ---
Author Organization [facility] Address [address] [place] [address] Phone Care Team Providers Care Physician Relations Manager Name Role Phone Unknown, Unknown Primary Care Provider Korey Leal MD Primary Care Prov ider Encounter Details Date Type Department Care Team (Late st Contact Info) Description 02/16/2019 Procedure Pass [facility], [address] [address] Social History Tobacco Use Types Packs/Day Years [...] on filedocumented in this encounter Care Teams Physician Relations Manager Relationship Specialty Start Date End Date Unknown, Unknown, MD PCP - General 02/12/19 03/08/19 Korey Kelly MD [address] [place] [address] PCP - General 03/09/19 documented as of this encounter Additional Source Comments The information contained in this document represents components of the legal health record. It is not the complete legal health record.[facility]
--- OUTSIDE RECORDS SUMMARY | 2025-05-11 00:40 | XMS_ITS | Clinical Summary ---
Author Organization [facility] Address [address] [place] [phone] Phone Care Team Providers Care Ship'S Captain Name Role Phone Carol Thomson POSTDOCTORAL SCIENTIST Primary Care Provider [phone] Surgical History Surgery Date Site/Laterality Comments FOOT SURGERY Left PROCEDURE: HISTORICAL FOOT SURGERY Medical History Medical History Date Comments Diabetes mellitus, type 2 (C MS/HCC V24, CMS/HCC V28) DX:Diabetes mellitus, type 2 (HCC) Social History Tobacco Use Types Packs/Day Years Used Date Smoking Tobacco: Never Smokeless Tobacco: Never Alcohol Use Standard Drinks/Week Comments Never 0 (1 standard drink = 0.6 oz pur e alcohol) Sex and Gender Information Value Date Recorded Sex Assigned at Not on file Legal Sex Male 3:38 AM EST Gender Identity Not on file Sexual Orientation Not on file Obstetrics History Last Filed Vital Signs Vital Sign Reading Time Taken Comments Blood Pressure - - Pulse - - Temperature - - Respiratory Rate - - Oxygen Saturation - - Inhaled Oxygen Concentration - - Weight 129 kg (285 lb) 12/28/2023 9:43 AM EDT Height 195.6 cm (6' 5 ) 12/28/2023 9:43 AM EDT Body Mass Index 33.8 12/28/2023 9:43 AM EDT Plan of Treatment Upcoming Encounters Date Type Department Care Team (Late st Contact Info) Description 05/11/2025 9:00 AM EST Office Visit Orthopedic Surgery - [place] [address] [phone] Endy Conway DPM 175 [facility] [address] [place] [address] Health Maintenance Due Date Last Done Comments Diabetes: Annual GFR (Glomer ular Filtration Rate) 1980 Diabetes: Annual Foot Exam 1990 Diabetes: Annual Retina Eye Exam 1990 DTaP,Tdap,and Td Vaccines (1 - Tdap) 09/09/1999 Hepatitis B Vaccines (1 of 3 - 19+ 3-dose series) 09/09/1999 HPV Vaccines (1 - 3-dose SCD M series) 09/09/2007 Cholesterol Screening (Lipid Panel) 05/10/2022 HIV Screening 05/10/2022 Hepatitis C Screening 05/10/2022 Social Influencers of Health Screening 05/10/2022 Diabetes: Annual Urine Albumin-Creatinine Ratio (uACR) 03/20/2024 Diabetes: Blood Sugar Contro l Test (HGBA1C) 03/20/2024 Hypertension/CHF/CAD Annual BMP Blood Test 03/20/2024 Depression Screening 06/07/2024 COVID-19 Vaccine (1 - 2024-2 6 season) 2025 Influenza Vaccine (#1) 2025 RSV Immunization Adult Patie nts (1 - 1-dose 75+ series) 09/09/2055 HIB Vaccines Aged Out No longer eligi ble based on patient's age to complete this topic Hepatitis A Vaccines Aged Out No long er eligible based on patient's age to complete this topic IPV Vaccines Aged Out No longer eligi ble based on patient's age to complete this topic MMR Vaccines Aged Out No longer eligi ble based on patient's age to complete this topic Meningococcal ACWY Vaccine Aged Out N o longer eligible based on patient's age to complete this topic Meningococcal B Vaccine Aged Out No l onger eligible based on patient's age to complete this topic Pneumococcal Vaccine: Pediat rics (0 to 5 Years) and At-Risk Patients (6 to 49 Years) Aged Out No longer eligible b ased on patient's age to complete this topic RSV Immunization Patients Un shania 20 months Aged Out No longer eligible b ased on patient's age to complete this topic Varicella Vaccines Aged Out No longer eligible based on patient's age to complete this topic Insurance MEDICAID - [place] Care Teams Ship'S Captain Relationship Specialty Start Date End Date Carol Thomson NP [address] [place] [phone] PCP - General 12/14/23
--- OUTSIDE RECORDS SUMMARY | 2025-05-11 00:41 | XMS_ITS | Encounter Summary ---
Author Organization [facility] Address [address] [place] [address] [address] [place] [address] Care Team Providers Care Bus Inspector Name Role Phone Korey Kelly MD Primary Care Prov ider Encounter Details Date Type Department Care Team ([facility] st Contact Info) Description 05/18/2022 Orders Only [facility] [address] [place] [address] Darin Givens, RN [address] [place] [address] Social History Tobacco Use Types Packs/Day Years [...] on filedocumented in this encounter Care Teams Bus Inspector Relationship Specialty Start Date End Date Korey Kelly MD [address] [place] [address] PCP - General Internal Medicine 03/09/19 documented as of this encounter
[2025-05-11 01:01] LABS: Erythrocyte Sedimentation Rate 31 MM/HR (0-15)
[2025-05-11 01:58] VITALS: BP 117/74; PULSE 92; RESP 18; TEMP 37.1; O2SAT 97
[2025-05-11 02:08] VITALS: BP 117/74; PULSE 92; RESP 18; TEMP 37.1; O2SAT 97
== END 2025-05-11 02:08 | disposition home or self-care (01) ==
PROVIDERS: Physician Assistant Medical; Emergency Provider Emergency Medicine; PCP Internal Medicine
DX: L03.115 Cellulitis of right lower limb (principal); M79.671 Pain in right foot; E11.621 Type 2 diabetes mellitus with foot ulcer; Z79.4 Long term (current) use of insulin; Z79.899 Other long term (current) drug therapy
CPT/HCPCS: 36415; 73630; 80053; 85025; 85652; 86140; 99282; 99284

== ENCOUNTER → 2025-05-11 00:25 | Outpatient (BNV) | payer OTHER, SELFPAY | PROVIDERS: Emergency Provider Emergency Medicine; PCP Internal Medicine; Visit Provider Student in an Organized Health Care Education/Training Program | DX: Z03.89 Encounter for observation for other suspected diseases and conditions ruled out (principal) | CPT/HCPCS: 73630 ==